=== PATIENT | male | born 1945 | race Caucasian/White ===

== ENCOUNTER 2016-03-18 18:07 | Inpatient (IN) | payer OTHER ==
[~2016-03-18] VITALS: Ht 172.7 cm; Wt 93.2 kg
[~2016-03-18 18:07] MED LIST: ASPI81TA28 PO; CARV25TA2 PO; DABI150C PO; DIPH-437 PO; FRS/40 PO; INSDGIPEN SQ; ISOS30TA35 PO; LISI10TA PO; MAGN400T6 PO; MXT150 PO; POTA-327 PO; PRS5 PO; TRIA0.1O12 TOP
[2016-03-18] MEDS ORDERED: SODIUM CHLORIDE 0.9% 500ML 500 ML IV STA (18:23)
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
[2016-03-18 18:38] LABS: BASO % 0.7 %; BASO ABS # 0.06 K/uL (0-0.2); COMPLETE YES; IG% 0.5 %; LYMPH % 22.1 %; LYMPH ABS # 1.89 K/uL (1.2-3.4); MEAN CELL VOLUME 78.6 fL (80-100); MEAN CORPUSCULAR HEMOGLOBIN 25.3 pg (25-34); MEAN CORPUSCULAR HGB CONC 32.3 g/dl (32-36); MEAN PLATELET VOLUME 11.4 fL (7.4-10.4); MONO % 12.3 %; NEUT % 57.4 %; PLATELET COUNT 253 K/uL (130-400); RED BLOOD COUNT 5.09 M/uL (4.7-6.1); WHITE BLOOD COUNT 8.56 K/uL (4.8-10.8)
[2016-03-18 18:43] LABS: ISTAT CREATININE 1.5 mg/dl (0.6-1.3); ISTAT HEMOGLOBIN 13.3 g/dl (14.0-18.0); ISTAT IONIZED CALCIUM 1.02 mmol/l (1.12-1.32)
[2016-03-18 18:47] LABS: INR 1.2 (0.9-1.1)
--- NOTE | 2016-03-18 19:06 | DIAGNOSTIC IMAGING REPORT ---
CHEST ONE VIEW PORTABLE CLINICAL HISTORY: Chest pain. Defibrillator activation. COMPARISON STUDY: Chest radiograph January 01, 2016. FINDINGS: A biventricular left subclavian pacemaker/AICD is unchanged in position. Moderate cardiomegaly is unchanged. There is no evidence of pulmonary edema. No consolidation is identified to suggest pneumonia. Mild left basilar opacity is suggestive of atelectasis. There is no pneumothorax or pleural effusion. IMPRESSION: 1. No acute findings. 2. Stable moderate cardiomegaly. Electronically signed by: Franco De León M.D. 03/18/2016 7:04 PM Dictated Date/Time: 03/18/2016 7:03 PM
[2016-03-18 19:13] LABS: ALT/SGPT 74 U/L (12-78); AST/SGOT 83 U/L (15-37); BLOOD UREA NITROGEN 17 mg/dl (7-18); BUN/CREATININE RATIO 11.1 (10-20); CALCIUM 8.1 mg/dl (8.5-10.1); CARBON DIOXIDE 33 mmol/L (21-32); CHLORIDE 101 mmol/L (98-107); GLUCOSE 109 mg/dl (70-99); MAGNESIUM 2.2 mg/dl (1.8-2.4); POTASSIUM 3.7 mmol/L (3.5-5.1); SODIUM 140 mmol/L (136-145)
[2016-03-18] MEDS ORDERED: FRS/40 PO ×2 (19:15→19:19)
[2016-03-18 19:29] LABS: ALKALINE PHOSPHATASE 105 U/L (45-117); CKMB/CK RATIO 1.4 (0-3.0)
[2016-03-18] MEDS ORDERED: FAMO20TA11 PO (19:40)
[2016-03-18] MEDS ORDERED: AMIO400T3 PO (19:40)
[2016-03-18] MEDS ORDERED: NITROGLYCERIN 0.4 MG SL PER TAB CHARGE SL PRN (20:00)
[2016-03-18] MEDS ORDERED: MAGNESIUM HYDROXIDE SUSP 30 ML UDC PO PRN (20:00)
[2016-03-18] MEDS ORDERED: MoRPHine SULFATE 2 MG/ML CARP IV PRN (20:00)
[2016-03-18] MEDS ORDERED: ONDANSETRON INJ 2 MG/ML 2 ML VIAL IV PRN (20:00)
[2016-03-18] MEDS ORDERED: ACETAMINOPHEN 325 MG TAB PO PRN (20:00)
[2016-03-18] MEDS ORDERED: POLYETHYLENE (MIRALAX) 17 GM PACK PO PRN (20:00)
[2016-03-18] MEDS ORDERED: ALUMINUM/MAGNESIUM/SIMETH (MAALOX MAX) 30 ML UDC PO PRN (20:00)
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
[2016-03-18] MEDS ORDERED: NON-FORMULARY MEDICATION (Mexiletine Hcl 150 MG) PO SCH (21:00)
[2016-03-18 21:30] VITALS: BP 150/91; TEMP 36.6; O2SAT 93; Ht 172.7 cm; Wt 93.2 kg
[2016-03-18 21:33] VITALS: BP 150/91; PULSE 75; TEMP 36.6; O2SAT 93
[2016-03-18] MEDS ORDERED: HEPARIN SOD 5000 UNIT/0.5 ML CARP SQ SCH (22:00)
[2016-03-18] MEDS: INSULIN ASPART 100 UNITS/ML 3 ML PEN SC SCH (22:33)
[2016-03-18] MEDS: INSULIN GLARGINE SOLOSTAR 100 UNITS/ML 3 ML PEN SQ SCH (22:39)
[2016-03-18] MEDS: MAGNESIUM OXIDE 400 MG TAB PO SCH (22:39)
[2016-03-18] MEDS: FUROSEMIDE 40 MG TAB PO SCH (22:40)
[2016-03-18] MEDS: CARVEDILOL 25 MG TAB PO SCH (22:40)
[2016-03-18] MEDS: DABIGATRAN ELEXILATE 75 MG CAP PO SCH (22:41)
[2016-03-18] MEDS: FAMOTIDINE 20 MG TAB PO SCH (22:41)
[2016-03-19] VITALS (7 sets, daily range): BP systolic 91–128; BP diastolic 57–78; PULSE 65–87; TEMP 36.3–36.5; O2SAT 91–95
[2016-03-19] MEDS: INSULIN ASPART 100 UNITS/ML 3 ML PEN SC SCH ×2 (07:00→11:00)
[2016-03-19] MEDS: DABIGATRAN ELEXILATE 75 MG CAP PO SCH (07:54)
[2016-03-19] MEDS: FUROSEMIDE 40 MG TAB PO SCH (07:54)
[2016-03-19] MEDS: CARVEDILOL 25 MG TAB PO SCH (07:55)
[2016-03-19] MEDS: FAMOTIDINE 20 MG TAB PO SCH (07:55)
[2016-03-19] MEDS: MAGNESIUM OXIDE 400 MG TAB PO SCH (07:55)
[2016-03-19] MEDS: INSULIN GLARGINE SOLOSTAR 100 UNITS/ML 3 ML PEN SQ SCH (07:56)
[2016-03-19] MEDS ORDERED: ISOSORBIDE MONONITRATE 30 MG TABCR PO SCH (09:00)
[2016-03-19] MEDS ORDERED: FINASTERIDE 5 MG TAB PO SCH (09:00)
[2016-03-19] MEDS ORDERED: ASPIRIN 81 MG ECTAB PO SCH (09:00)
[2016-03-19] MEDS ORDERED: MEXILETINE HCL 150 MG CAP PO SCH (09:00)
[2016-03-19] MEDS ORDERED: LISINOPRIL 10 MG TAB PO SCH (09:00)
[2016-03-19] MEDS ORDERED: AMIODARONE 200 MG TAB PO SCH (09:00)
[2016-03-19] MEDS ORDERED: POTASSIUM CHLORIDE 10 MEQ TABCR PO SCH (09:00)
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
--- NOTE | 2016-03-19 13:26 | Discharge Instructions ---
Discharge Instructions Admission Reason for Admission: Defibrillator Discharge Discharge Discharge Diagnosis / Problem: Ventricular tachycardia, defibrillator discharge Discharge Goals Goal(s): Improve disease control, Therapeutic intervention Activity Recommendations Activity Limitations: resume your previous activity . Instructions / Follow-Up Instructions / Follow-Up You were admitted after your defibrillator appropriately fired for sustained ventricular tachycardia. You had blood tests that showed you did not have heart attack. You were seen by the Net Programmer Analyst who did not make any changes to your home medications. You are stable for discharge to home. You should keep your routine follow up with Dr. Altman in May. It is recommended that you see you r primary care doctor within 1-2 weeks after a hospitalization. Current Hospital Diet Patient's current hospital diet: AHA Diet (Heart Healthy) Discharge Diet Recommended Diet: AHA Diet (Heart Healthy), Low Sodium Diet (2gm Na) Procedures Procedures Performed: Chest xray Pending Studies Studies pending at discharge: no Medical Emergencies . Who to Call and When: Medical Emergencies: If at any time you feel your situation is an emergency, please call 911 immediately. . Non-Emergent Contact Non-Emergency issues call your: Primary Care Provider, Net Programmer Analyst Call Non-Emergent contact if: temperature is above 101, you have any medication questions . . "Provider Documentation" section prepared by Devi Modi. VTE Core Measure Inpt VTE Proph given/why not?: Other Anticoagulation (Pradaxa)
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
== END 2016-03-19 13:55 | disposition home or self-care (01) | DRG 309 ==
LOC: ENRESERVDT → ENRESERVTM → EDBD 18:07 → C.EDB 18:08 → C.2T 20:04
PROVIDERS: ADMIT Internal Medicine; ATTEND Internal Medicine
DX: I47.2 Ventricular tachycardia (principal); I50.22 Chronic systolic (congestive) heart failure; I48.0 Paroxysmal atrial fibrillation; N18.2 Chronic kidney disease, stage 2 (mild); I25.10 Atherosclerotic heart disease of native coronary artery without angina pectoris; I12.9 Hypertensive chronic kidney disease with stage 1 through stage 4 chronic kidney disease, or unspecified chronic kidney disease; E11.9 Type 2 diabetes mellitus without complications; I25.5 Ischemic cardiomyopathy; N40.0 Benign prostatic hyperplasia without lower urinary tract symptoms; I25.2 Old myocardial infarction; Z79.82 Long term (current) use of aspirin; Z79.899 Other long term (current) drug therapy; Z79.4 Long term (current) use of insulin; Z95.810 Presence of automatic (implantable) cardiac defibrillator

== ENCOUNTER → 2016-05-17 | Outpatient (CLI) | payer OTHER ==
[~2016-05-17] MED LIST changes: +AMIO400T3 PO; +FAMO20TA11 PO
[2016-05-17 12:21] LABS: HEMATOCRIT 40.3 % (42-52); MEAN CELL VOLUME 75.3 fL (80-100); MEAN CORPUSCULAR HEMOGLOBIN 23.9 pg (25-34); MEAN CORPUSCULAR HGB CONC 31.8 g/dl (32-36); MEAN PLATELET VOLUME 11.8 fL (7.4-10.4); PLATELET COUNT 223 K/uL (130-400); RED BLOOD COUNT 5.35 M/uL (4.7-6.1); WHITE BLOOD COUNT 7.13 K/uL (4.8-10.8)
[2016-05-17 12:42] LABS: ALB/GLOB RATIO 1.2 (0.9-2); ALKALINE PHOSPHATASE 100 U/L (45-117); ALT/SGPT 68 U/L (12-78); AST/SGOT 70 U/L (15-37); BLOOD UREA NITROGEN 19 mg/dl (7-18); BUN/CREATININE RATIO 10.7 (10-20); CALCIUM 8.2 mg/dl (8.5-10.1); CARBON DIOXIDE 33 mmol/L (21-32); CHLORIDE 100 mmol/L (98-107); CHOLESTEROL 140 mg/dl (0-200); CHOLESTEROL/HDL RATIO 4.1; GLUCOSE 178 mg/dl (70-99); HDL CHOLESTEROL 34 mg/dl; POTASSIUM 3.9 mmol/L (3.5-5.1); SODIUM 139 mmol/L (136-145)
[2016-05-17 12:46] LABS: ESTIMATED AVERAGE GLUCOSE 160 mg/dl; HA1C FLAG Normal (Normal)
[2016-05-17 12:55] LABS: LDL CHOLESTEROL CALCULATED 71 mg/dl; TRIGLYCERIDES 173 mg/dl (0-150); VERY LOW DENSITY LIPOPROT CALC 35 mg/dl
[2016-05-18 21:36] LABS: DESMETHYLAMIODARONE 1.1 mcg/mL (1.5-2.5)
== END | disposition home or self-care (01) ==
LOC: C.LABBFT 09:43
PROVIDERS: ATTEND Internal Medicine
DX: E78.5 Hyperlipidemia, unspecified (principal); I42.9 Cardiomyopathy, unspecified; I50.42 Chronic combined systolic (congestive) and diastolic (congestive) heart failure; I25.10 Atherosclerotic heart disease of native coronary artery without angina pectoris; E11.21 Type 2 diabetes mellitus with diabetic nephropathy; Z79.899 Other long term (current) drug therapy

== ENCOUNTER → 2016-09-19 | Outpatient (CLI) | payer OTHER ==
[2016-09-19 17:40] LABS: BASO % 0.7 %; BASO ABS # 0.05 K/uL (0-0.2); COMPLETE YES; EOS % 6.7 %; HEMATOCRIT 41.5 % (42-52); IG% 0.4 %; LYMPH % 22.3 %; LYMPH ABS # 1.59 K/uL (1.2-3.4); MEAN CELL VOLUME 80.3 fL (80-100); MEAN CORPUSCULAR HEMOGLOBIN 24.4 pg (25-34); MEAN CORPUSCULAR HGB CONC 30.4 g/dl (32-36); MEAN PLATELET VOLUME 12.3 fL (7.4-10.4); MONO % 11.1 %; NEUT % 58.8 %; PLATELET COUNT 235 K/uL (130-400); RED BLOOD COUNT 5.17 M/uL (4.7-6.1); WHITE BLOOD COUNT 7.12 K/uL (4.8-10.8)
[2016-09-19 17:51] LABS: ALT/SGPT 65 U/L (12-78); AST/SGOT 68 U/L (15-37); BLOOD UREA NITROGEN 16 mg/dl (7-18); BUN/CREATININE RATIO 9.7 (10-20); CALCIUM 8.3 mg/dl (8.5-10.1); CARBON DIOXIDE 32 mmol/L (21-32); CHLORIDE 100 mmol/L (98-107); GLUCOSE 105 mg/dl (70-99); POTASSIUM 3.5 mmol/L (3.5-5.1); SODIUM 139 mmol/L (136-145)
[2016-09-19 18:02] LABS: ALB/GLOB RATIO 1.2 (0.9-2); ALKALINE PHOSPHATASE 90 U/L (45-117); CHOLESTEROL 128 mg/dl (0-200); CHOLESTEROL/HDL RATIO 4.1; HDL CHOLESTEROL 31 mg/dl; LDL CHOLESTEROL CALCULATED 62 mg/dl; TRIGLYCERIDES 175 mg/dl (0-150); VERY LOW DENSITY LIPOPROT CALC 35 mg/dl
[2016-09-19 18:23] LABS: RATIO 11.5 mcg/mg (0-30.0)
[2016-09-20 06:20] LABS: ESTIMATED AVERAGE GLUCOSE 157 mg/dl; HA1C FLAG Normal (Normal)
== END | disposition home or self-care (01) ==
LOC: C.LABBFT 11:46
PROVIDERS: ATTEND Internal Medicine
DX: E11.21 Type 2 diabetes mellitus with diabetic nephropathy (principal); E03.9 Hypothyroidism, unspecified

== ENCOUNTER → 2016-12-01 | Outpatient (CLI) | payer OTHER ==
--- NOTE | 2016-12-13 12:42 | CODING QUERY MEDICAL NECESSITY ---
CQSUPPORTING DIAGNOSIS NEEDED A supporting diagnosis is required for the test/procedure performed on this patient in order for us to be reimbursed by the patient's insurance. Please provide a supporting diagnosis for the following test/procedure listed below next to the test name along with your signature. *If there is no additional diagnosis for this patient that would support the following test/procedure please document that below next to the test/procedure. Test(s)/Procedure(s) that require a supporting diagnosis: DOS 12/01/16 PROSTATE SPECIFIC TEST Provider Signature: Date: Thank you Angelique Gray [employer] Information Management Once completed, please kindly fax back to [phone] For questions please call [phone]
== END | disposition home or self-care (01) ==
LOC: C.LABBFT 13:22
PROVIDERS: ATTEND Internal Medicine
DX: R41.0 Disorientation, unspecified (principal); N35.9 Urethral stricture, unspecified; R19.7 Diarrhea, unspecified; N40.1 Benign prostatic hyperplasia with lower urinary tract symptoms

== ENCOUNTER → 2016-12-20 | Outpatient (CLI) | payer OTHER | END | disposition home or self-care (01) | LOC: C.LABBFT 11:08 | PROVIDERS: ATTEND Internal Medicine | DX: E03.9 Hypothyroidism, unspecified (principal) ==

== ENCOUNTER 2016-12-28 06:30 | Inpatient (IN) | payer OTHER ==
[2016-12-28] VITALS (10 sets, daily range): BP systolic 101–137; BP diastolic 62–86; PULSE 59–70; TEMP 36.3–37; O2SAT 93–96; Ht 172.7 cm; Wt 95.0 kg
[~2016-12-28] VITALS: Ht 172.7 cm; Wt 95.0 kg
[2016-12-28] MEDS ORDERED: FUROSEMIDE 40 MG/4 ML VIAL IV STA (06:48)
--- NOTE | 2016-12-28 06:49 | EMERGENCY ROOM VISIT NOTE ---
History Report prepared by Nate: Lavonne Meyer Under the Supervision of: Dr. Gabriel Hopson M.D. First contact with patient: 06:40 Chief Complaint: SHORTNESS OF BREATH Stated Complaint: FILLING UP WITH FLUID History of Present Illness The patient is a 71 year old male who presents to the Emergency Room with complaints of persistent shortness of breath that began this morning. The patient states that he has a history of congestive heart failure, stating that he feels he is developing fluid build up again. He states that he is on Lasix in the morning and afternoon, but states that he has not taken his medication this morning. The patient states that he has felt himself wheezing and has noticed weight gain. The patient's states that the patient's abdomen has been increasingly distended. He denies being on oxygen at home. The patient denies using inhalers at home. Source of History: patient Onset: this morning Position: other (global) Quality: other (shortness of breath) Timing: other (persistent) Note: Associated Symptoms: abdominal distension, weight gain, wheezes Review of Systems See HPI for pertinent positives & negatives. A total of 10 systems reviewed and were otherwise negative. Past Medical & Surgical Medical Problems: (1) Atrial fibrillation (2) Benign hypertension (3) CHF (congestive heart failure) (4) Chronic kidney disease, stage II (mild) (5) Diabetes mellitus (6) Ischemic cardiomyopathy (7) Left Femoral Neck Fracture (8) Myocardial infarction (9) Pneumonia (10) Shortness of breath (11) Urinary retention Family History FH: HTN (hypertension) FH: cancer FH: thyroid condition FHx: diabetes mellitus FHx: heart disease Social History Smoking Status: Never Smoker Alcohol Use: none Drug Use: none Marital Status: Housing Status: lives with family Occupation Status: retired Current/Historical Medications Scheduled Acetaminophen/Diphenhydramine (Tylenol Pm), 1 TAB PO HS Amiodarone Hcl (Cordarone), 200 MG PO DAILY Aspirin (Aspirin Ec), 81 MG PO DAILY Carvedilol (Coreg), 25 MG PO BID Dabigatran Etexilate Mesylate (Pradaxa), 150 MG PO BID Famotidine (Pepcid), 20 MG PO BID Finasteride (Proscar), 5 MG PO DAILY Furosemide (Lasix), 40 MG PO BID UD Insulin Glargine (Lantus Solostar), 25 UNITS SQ BID Isosorbide Mononitrate Ext Rel (Imdur Ext Rel), 30 MG PO QAM Levothyroxine Sodium (Synthroid), 88 MCG PO DAILY Lisinopril (Prinivil), 10 MG PO DAILY Magnesium Oxide (Mag-Ox), 400 MG PO BID Potassium Chloride (Micro-K Ext Rel), 10 MEQ PO DAILY Triamcinolone Acet (Triamcinolone Acetonide), 1 APPLN TOP BID Scheduled PRN Furosemide (Lasix), 40 MG PO DAILY PRN for WT GAIN, OR EDEMA Allergies Coded Allergies: Midazolam (Verified Allergy, Intermediate, "Made me go wild", 12/28/16) Adhesives (Verified Allergy, Unknown, RASH, 12/28/16) Bacitracin (Verified Allergy, Unknown, RASH, 12/28/16) Neomycin (Verified Allergy, Unknown, RASH, 12/28/16) Polymyxin B (Verified Allergy, Unknown, RASH, 08/07/15) Rosuvastatin (Verified Allergy, Unknown, RASH, 12/28/16) Risperidone (Verified Adverse Reaction, Severe, confusion, disorientation , 12/28/16) Metformin (Verified Adverse Reaction, Mild, DIARRHEA, 12/28/16) Oxycodone (Verified Adverse Reaction, Unknown, PT STATES THAT IT MAKES HIM MEAN OR ANGRY, 12/28/16) Quetiapine (Verified Adverse Reaction, Unknown, GETS COMBATIVE, 12/28/16) Physical Exam Vital Signs Date Time Temp Pulse Resp B/P (MAP) Pulse Ox O2 Delivery O2 Flow Rate FiO2 12/28/16 08:00 84 18 104/72 96 Room Air 12/28/16 07:00 96 Room Air 12/28/16 06:58 61 20 133/81 95 Room Air 12/28/16 06:50 96 Room Air 12/28/16 06:47 72 12/28/16 06:37 36.4 92 20 137/71 97 Room Air Physical Exam GENERAL: Patient is a healthy-appearing well-nourished male HEAD: Normocephalic atraumatic EYES: Ocular movements intact pupils equal and react to light OROPHARYNX mucous membranes are moist no exudates present no erythema or edema present NECK: Supple no nuchal rigidity CHEST: Good equal expansion LUNGS: Rales noted at both bases CARDIAC: Normal S1 and S2 ABDOMEN: Soft nontender no guarding BACK: No CVA tenderness EXTREMITIES: No pain upon palpation normal muscle strength in all groups no clubbing cyanosis or edema NEURO: Patient is following commands and answering questions appropriately. Alert and oriented x3 Cranial Nerves 2-12 grossly intact Medical Decision & Procedures ER Provider Diagnostic Interpretation: X-ray results as stated below per interpretation by me and the radiologist: CHEST ONE VIEW PORTABLE CLINICAL HISTORY: Shortness of breath COMPARISON STUDY: 03/18/2016 FINDINGS: The heart is the upper limits of normal in size. There is a left subclavian pacer/defibrillator present. There is no failure. There is no focal pulmonary consolidation. There are no pleural effusions. There are linear atelectatic changes at the left lung base.[ IMPRESSION: No active disease in the chest. Electronically signed by: Earnest Gan M.D. 12/28/2016 7:28 AM Dictated Date/Time: 12/28/2016 7:27 AM Laboratory Results 12/28/16 06:50 Red Blood Count 4.00, Mean Corpuscular Volume 84.0, Mean Corpuscular Hemoglobin 26.8, Mean Corpuscular Hemoglobin Concent 31.8, Mean Platelet Volume 11.8, Neutrophils (%) (Auto) 61.4, Lymphocytes (%) (Auto) 20.0, Monocytes (%) (Auto) 10.2, Eosinophils (%) (Auto) 7.2, Basophils (%) (Auto) 0.8, Neutrophils # (Auto ) 4.52, Lymphocytes # (Auto) 1.47, Monocytes # (Auto) 0.75, Eosinophils # (Auto ) 0.53, Basophils # (Auto) 0.06 12/28/16 06:50 Test 12/28/16 06:50 12/28/16 07:08 White Blood Count 7.36 K/uL (4.8-10.8) Red Blood Count 4.00 M/uL (4.7-6.1) Hemoglobin 10.7 g/dL (14.0-18.0) Hematocrit 33.6 % (42-52) Mean Corpuscular Volume 84.0 fL (80-100) Mean Corpuscular Hemoglobin 26.8 pg (25-34) Mean Corpuscular Hemoglobin Concent 31.8 g/dl (32-36) Platelet Count 200 K/uL (130-400) Mean Platelet Volume 11.8 fL (7.4-10.4) Neutrophils (%) (Auto) 61.4 % Lymphocytes (%) (Auto) 20.0 % Monocytes (%) (Auto) 10.2 % Eosinophils (%) (Auto) 7.2 % Basophils (%) (Auto) 0.8 % Neutrophils # (Auto) 4.52 K/uL (1.4-6.5) Lymphocytes # (Auto) 1.47 K/uL (1.2-3.4) Monocytes # (Auto) 0.75 K/uL (0.11-0.59) Eosinophils # (Auto) 0.53 K/uL (0-0.5) Basophils # (Auto) 0.06 K/uL (0-0.2) RDW Standard Deviation 43.6 fL (36.4-46.3) RDW Coefficient of Variation 18.3 % (11.5-14.5) Immature Granulocyte % (Auto) 0.4 % Immature Granulocyte # (Auto) 0.03 K/uL (0.00-0.02) Prothrombin Time 12.2 SECONDS (9.0-12.0) Prothromb Time International Ratio 1.1 (0.9-1.1) Anion Gap 4.0 mmol/L (3-11) Est Creatinine Clear Calc Drug Dose 51.2 ml/min Estimated GFR () 53.0 Estimated GFR (Non- 45.7 BUN/Creatinine Ratio 10.1 (10-20) Calcium Level 8.1 mg/dl (8.5-10.1) Total Bilirubin 0.5 mg/dl (0.2-1) Aspartate Amino Transf (AST/SGOT) 57 U/L (15-37) Alanine Aminotransferase (ALT/SGPT) 51 U/L (12-78) Alkaline Phosphatase 81 U/L (45-117) Total Creatine Kinase 270 U/L (39-308) Creatine Kinase MB 4.3 ng/ml (0.5-3.6) Creatine Kinase MB Ratio 1.6 (0-3.0) Troponin I 0.680 ng/ml (0-0.045) Total Protein 6.6 gm/dl (6.4-8.2) Albumin 3.4 gm/dl (3.4-5.0) Globulin 3.2 gm/dl (2.5-4.0) Albumin/Globulin Ratio 1.1 (0.9-2) Urine Color YELLOW Urine Appearance CLEAR (CLEAR) Urine pH 7.5 (4.5-7.5) Urine Specific [place] 1.010 (1.000-1.030) Urine Protein NEG (NEG) Urine Glucose (UA) NEG (NEG) Urine Ketones NEG (NEG) Urine Occult Blood NEG (NEG) Urine Nitrite NEG (NEG) Urine Bilirubin NEG (NEG) Urine Urobilinogen NEG (NEG) Urine Leukocyte Esterase NEG (NEG) Labs reviewed by ED physician. Medications Administered Medications (Trade) Dose Ordered Sig/William Route Start Time Stop Time Status Last Admin Dose Admin Furosemide (Lasix Inj) 40 mg NOW STAT IV 12/28/16 06:48 12/28/16 06:50 DC 12/28/16 06:59 40 MG ECG Indication: SOB/dyspnea Rate (beats per minute): 78 Rhythm: other (atrial paced) Findings: no acute ischemic change, no ectopy ED Course 0643: Past medical records reviewed. The patient was evaluated in room A11B. A complete history and physical examination was performed. 0648: Ordered Lasix Inj 40 mg IV. 0745: I reevaluated the patient and he is resting comfortably. I discussed the exam findings with him and I discussed the treatment plan. He verbalized complete understanding and agreement. He is going to be evaluated for further treatment. 0754: I discussed the patients case with YELENA Carlisle. He is going to evaluate the patient for further treatment. Medical Decision Differential diagnosis: Etiologies such as infections, reactive airway disease, pneumonia, pneumothorax , COPD, CHF, cardiac ischemia, pulmonary embolism, musculoskeletal, gastrointestinal, as well as others were entertained. This is a 71-year-old male who presents emergency department complaining of shortness of breath as well as congestion and weight gain. The patient does have an elevation in his troponin. He was given his Lasix dose this morning. I did discuss my findings with the patient and who agreed to stay. Medication Reconcilliation Current Medication List: was personally reviewed by me Blood Pressure Screening Patient's blood pressure: Elevated blood pressure Blood pressure disposition: Referred to PCP Consults Time Called: 0748 Consulting Physician: YELENA Carlisle Returned Call: [phone] I discussed the patients case with YELENA Carlisle. He is going to evaluate the patient for further treatment. Impression Primary Impression: CHF exacerbation Scribe Attestation The scribe's documentation has been prepared under my direction and personally reviewed by me in its entirety. I confirm that the note above accurately reflects all work, treatment, procedures, and medical decision making performed by me. Departure Information Dispostion Being Evaluated By Hospitalist Referrals Giovany Pollack M.D. (PCP) Problem Qualifiers Primary Impression: CHF exacerbation Congestive heart failure type: unspecified congestive heart failure type Qualified Codes: I50.9 - Heart failure, unspecified
[2016-12-28 07:09] LABS: BASO % 0.8 %; BASO ABS # 0.06 K/uL (0-0.2); COMPLETE YES; EOS % 7.2 %; HEMATOCRIT 33.6 % (42-52); IG% 0.4 %; LYMPH ABS # 1.47 K/uL (1.2-3.4); MEAN CORPUSCULAR HEMOGLOBIN 26.8 pg (25-34); MEAN CORPUSCULAR HGB CONC 31.8 g/dl (32-36); MEAN PLATELET VOLUME 11.8 fL (7.4-10.4); MONO % 10.2 %; NEUT % 61.4 %; PLATELET COUNT 200 K/uL (130-400); WHITE BLOOD COUNT 7.36 K/uL (4.8-10.8)
[2016-12-28] MEDS ORDERED: FINA5TAB PO (07:11)
[2016-12-28] MEDS ORDERED: AMIO200T4 PO (07:11)
[2016-12-28] MEDS ORDERED: POTA10CA28 PO (07:11)
[2016-12-28] MEDS ORDERED: LEVO88TA PO (07:11)
[2016-12-28] MEDS ORDERED: TRMO115 TOP (07:11)
[2016-12-28 07:16] LABS: INR 1.1 (0.9-1.1); PROTHROMBIN TIME (PATIENT) 12.2 SECONDS (9.0-12.0)
[2016-12-28 07:20] LABS: URINE APPEARANCE CLEAR (CLEAR); URINE BILIRUBIN NEG (NEG); URINE COLOR YELLOW; URINE NITRITE NEG (NEG); URINE PH 7.5 (4.5-7.5); UROBILINOGEN NEG (NEG)
[2016-12-28 07:23] LABS: MANUAL MICROSCOPIC REQUIRED? NO; REVIEW REQ? NO
[2016-12-28 07:26] LABS: BUN/CREATININE RATIO 10.1 (10-20); CALCIUM 8.1 mg/dl (8.5-10.1); CREATININE 1.53 mg/dl (0.60-1.40); POTASSIUM 3.9 mmol/L (3.5-5.1)
--- NOTE | 2016-12-28 07:29 | DIAGNOSTIC IMAGING REPORT ---
CHEST ONE VIEW PORTABLE CLINICAL HISTORY: Shortness of breath COMPARISON STUDY: 03/18/2016 FINDINGS: The heart is the upper limits of normal in size. There is a left subclavian pacer/defibrillator present. There is no failure. There is no focal pulmonary consolidation. There are no pleural effusions. There are linear atelectatic changes at the left lung base.[ IMPRESSION: No active disease in the chest. Electronically signed by: Earnest Gan M.D. 12/28/2016 7:28 AM Dictated Date/Time: 12/28/2016 7:27 AM
[2016-12-28 07:43] LABS: ALB/GLOB RATIO 1.1 (0.9-2); CKMB/CK RATIO 1.6 (0-3.0)
[2016-12-28] MEDS ORDERED: ALUMINUM/MAGNESIUM/SIMETH (MAALOX MAX) 30 ML UDC PO PRN (08:00)
[2016-12-28] MEDS ORDERED: POLYETHYLENE (MIRALAX) 17 GM PACK PO PRN (08:00)
[2016-12-28] MEDS ORDERED: MAGNESIUM HYDROXIDE SUSP 30 ML UDC PO PRN (08:00)
[2016-12-28] MEDS ORDERED: NITROGLYCERIN 0.4 MG SL PER TAB CHARGE SL PRN (08:00)
[2016-12-28] MEDS ORDERED: ONDANSETRON INJ 2 MG/ML 2 ML VIAL IV PRN (08:00)
[2016-12-28] MEDS ORDERED: ACETAMINOPHEN 325 MG TAB PO PRN (08:00)
[2016-12-28] MEDS ORDERED: MoRPHine SULFATE 2 MG/ML CARP IV PRN (08:00)
[2016-12-28] MEDS ORDERED: IV FLUIDS COMPLETED PRN (08:30)
[2016-12-28] MEDS: ASPIRIN 81 MG ECTAB PO SCH (10:44)
[2016-12-28] MEDS ORDERED: GLUCOSE 10 TABS/TUBE PO PRN (12:45)
[2016-12-28] MEDS ORDERED: DEXTROSE 50% 50 ML SYR IV PRN (12:45)
[2016-12-28] MEDS ORDERED: GLUCOSE 40% GEL 15 GM TUBE PO PRN (12:45)
[2016-12-28] MEDS ORDERED: GLUCAGON FOR INJ 1 MG VIAL SQ PRN (12:45)
[2016-12-28 13:12] LABS: ESTIMATED AVERAGE GLUCOSE 151 mg/dl; HA1C FLAG Normal (Normal)
--- NOTE | 2016-12-28 13:47 | Medical Student: [facility] ---
Med Student History & Physical Date & Time of Service: Dec 28, 2016 at 13:23 Chief Complaint: Shortness Of Breath Primary Care Physician: Giovany Pollack M.D. History of Present Illness Source: patient, spouse Nghia is a 71-year-old male with a history of CHF, a-fib, HTN, prior MT with subsequent ischemic cardiomyopathy, and DMII, presents to the ED with shortness of breath that began when he woke up around 0600 this morning. He has also gained five pounds in the last week, including three overnight, according to the log his keeps for him. He is wheezing and coughing and appears uncomfortable. states that he takes Lasix 40 mg BID and has been taking his medication as instructed, including "extra" (PRN as given by PCP) the last few days because of his increasing weight. When asked about his eating habits, patient admits that he likes to snack on potato chips, eats ham sandwiches for lunch, and had hot dogs for lunch last week, which seems to be slightly increased sodium intake for him. Denies smoking but admits to use of smokeless tobacco. Past Medical/Surgical History Medical Problems: (1) CHF (congestive heart failure) Status: Acute (2) CHF exacerbation Status: Acute (3) Closed impacted fracture of left hip Status: Acute (4) Non-STEMI (non-ST elevated myocardial infarction) Status: Acute (5) Renal insufficiency Status: Acute Family History HTN, cancer, thyroid, DMII, heart disease Social History Smoking Status: Never Smoker Smokeless Tobacco Use: Yes Drug Use: none Marital Status: Housing status: lives with significant other Occupational Status: retired Immunizations History of Influenza Vaccine: Yes Influenza Vaccine Date: Dec 10, 2012 History of Tetanus Vaccine?: Unknown History of Pneumococcal: Yes Pneumococcal Date: Apr 11, 2012 History of Hepatitis B Vaccine: Unknown Allergies Coded Allergies: Midazolam (Verified Allergy, Intermediate, "Made me go wild", 12/28/16) Adhesives (Verified Allergy, Unknown, RASH, 12/28/16) Bacitracin (Verified Allergy, Unknown, RASH, 12/28/16) Neomycin (Verified Allergy, Unknown, RASH, 12/28/16) Polymyxin B (Verified Allergy, Unknown, RASH, 08/07/15) Rosuvastatin (Verified Allergy, Unknown, RASH, 12/28/16) Risperidone (Verified Adverse Reaction, Severe, confusion, disorientation , 12/28/16) Metformin (Verified Adverse Reaction, Mild, DIARRHEA, 12/28/16) Oxycodone (Verified Adverse Reaction, Unknown, PT STATES THAT IT MAKES HIM MEAN OR ANGRY, 12/28/16) Quetiapine (Verified Adverse Reaction, Unknown, GETS COMBATIVE, 12/28/16) Medications Acetaminophen/Diphenhydramine (Tylenol Pm), 1 TAB PO HS Amiodarone Hcl (Cordarone), 200 MG PO DAILY Aspirin (Aspirin Ec), 81 MG PO DAILY Carvedilol (Coreg), 25 MG PO BID Dabigatran Etexilate Mesylate (Pradaxa), 150 MG PO BID Famotidine (Pepcid), 20 MG PO BID Finasteride (Proscar), 5 MG PO DAILY Furosemide (Lasix), 40 MG PO BID UD Furosemide (Lasix), 40 MG PO DAILY PRN for WT GAIN, OR EDEMA Insulin Glargine (Lantus Solostar), 25 UNITS SQ BID Isosorbide Mononitrate Ext Rel (Imdur Ext Rel), 30 MG PO QAM Levothyroxine Sodium (Synthroid), 88 MCG PO DAILY Lisinopril (Prinivil), 10 MG PO DAILY Magnesium Oxide (Mag-Ox), 400 MG PO BID Potassium Chloride (Micro-K Ext Rel), 10 MEQ PO DAILY Triamcinolone Acet (Triamcinolone Acetonide), 1 APPLN TOP BID Review of Systems Constitutional: + problem reported (weight gain, 5 lbs over last 7 days), No fever, No chills Respiratory: + cough, + wheezing, + shortness of breath, + dyspnea at rest, No sputum Cardiovascular: + orthopnea, + PND, + edema (pedal and abdominal), No chest pain Abdomen: No pain, No nausea, No vomiting Musculoskeletal: No calf pain Neurologic: No numbness/tingling Hematologic / Lymphatic: No abnormal bleeding/bruising Integumentary: + problem reported Physical Exam Vital Signs (24 Hours) Date Time Temp Pulse Resp B/P (MAP) Pulse Ox O2 Delivery O2 Flow Rate FiO2 12/28/16 11:19 37.0 60 20 112/68 (83) 93 12/28/16 09:15 36.4 59 18 133/81 (98) 95 Room Air 10/18/17 09:06 84 20 131/79 95 Room Air 12/28/16 08:34 96 Room Air 12/28/16 08:15 95 Room Air 12/28/16 08:00 84 18 104/72 96 Room Air 12/28/16 07:00 96 Room Air 12/28/16 06:58 61 20 133/81 95 Room Air 12/28/16 06:50 96 Room Air 12/28/16 06:47 72 12/28/16 06:37 36.4 92 20 137/71 97 Room Air General Appearance: + mild distress Head: normocephalic, atraumatic Eyes: normal inspection Neck: supple Respiratory/Chest: + respiratory distress, + decreased breath sounds, + rales Cardiovascular: + irregularly irregular Abdomen/GI: normal bowel sounds, + distended Extremities/Musculoskelatal: + pedal edema (1+) Neurologic/Psych: digital account director II-XII nml as tested Diagnostics Laboratory Results Results Past 24 Hours Test 12/28/16 06:50 12/28/16 07:08 12/28/16 09:24 12/28/16 12:00 Range/Units White Blood Count 7.36 4.8-10.8 K/uL Red Blood Count 4.00 4.7-6.1 M/uL Hemoglobin 10.7 14.0-18.0 g/dL Hematocrit 33.6 42-52 % Mean Corpuscular Volume 84.0 80-100 fL Mean Corpuscular Hemoglobin 26.8 25-34 pg Mean Corpuscular Hemoglobin Concent 31.8 32-36 g/dl Platelet Count 200 130-400 K/uL Mean Platelet Volume 11.8 7.4-10.4 fL Neutrophils (%) (Auto) 61.4 % Lymphocytes (%) (Auto) 20.0 % Monocytes (%) (Auto) 10.2 % Eosinophils (%) (Auto) 7.2 % Basophils (%) (Auto) 0.8 % Neutrophils # (Auto) 4.52 1.4-6.5 K/uL Lymphocytes # (Auto) 1.47 1.2-3.4 K/uL Monocytes # (Auto) 0.75 0.11-0.59 K/uL Eosinophils # (Auto) 0.53 0-0.5 K/uL Basophils # (Auto) 0.06 0-0.2 K/uL RDW Standard Deviation 43.6 36.4-46.3 fL RDW Coefficient of Variation 18.3 11.5-14.5 % Immature Granulocyte % (Auto) 0.4 % Immature Granulocyte # (Auto) 0.03 0.00-0.02 K/uL Prothrombin Time 12.2 9.0-12.0 SECONDS Prothromb Time International Ratio 1.1 0.9-1.1 Sodium Level 139 136-145 mmol/L Potassium Level 3.9 3.5-5.1 mmol/L Chloride Level 103 98-107 mmol/L Carbon Dioxide Level 32 21-32 mmol/L Anion Gap 4.0 3-11 mmol/L Blood Urea Nitrogen 15 7-18 mg/dl Creatinine 1.53 0.60-1.40 mg/dl Est Creatinine Clear Calc Drug Dose 51.2 ml/min Estimated GFR () 53.0 Estimated GFR (Non- 45.7 BUN/Creatinine Ratio 10.1 10-20 Random Glucose 105 70-99 mg/dl Estimated Average Glucose 151 mg/dl Hemoglobin A1c 6.9 4.5-5.6 % Calcium Level 8.1 8.5-10.1 mg/dl Total Bilirubin 0.5 0.2-1 mg/dl Aspartate Amino Transf (AST/SGOT) 57 15-37 U/L Alanine Aminotransferase (ALT/SGPT) 51 12-78 U/L Alkaline Phosphatase 81 45-117 U/L Total Creatine Kinase 270 39-308 U/L Creatine Kinase MB 4.3 0.5-3.6 ng/ml Creatine Kinase MB Ratio 1.6 0-3.0 Troponin I 0.680 0-0.045 ng/ml Total Protein 6.6 6.4-8.2 gm/dl Albumin 3.4 3.4-5.0 gm/dl Globulin 3.2 2.5-4.0 gm/dl Albumin/Globulin Ratio 1.1 0.9-2 Urine Color YELLOW Urine Appearance CLEAR CLEAR Urine pH 7.5 4.5-7.5 Urine Specific [place] 1.010 1.000-1.030 Urine Protein NEG NEG Urine Glucose (UA) NEG NEG Urine Ketones NEG NEG Urine Occult Blood NEG NEG Urine Nitrite NEG NEG Urine Bilirubin NEG NEG Urine Urobilinogen NEG NEG Urine Leukocyte Esterase NEG NEG Bedside Glucose 112 161 70-99 mg/dl Impression Assessment and Plan This is a 71-year-old male who presents with shortness of breath and weight gain /fluid retention. He has a history of CHF and this is very likely an exacerbation. Other possibilities include COPD, pneumonia, PE, pulmonary HTN, asthma, silent MT, med noncompliance. Primary diagnosis: CHF exacerbation with elevated troponin -IV Lasix 40 mg BID -Echocardiogram -Serial troponin levels -Follow up CXR if worse symptoms -Low sodium diet A fib/ischemic cardiomyopathy/HTN -Continue carvedilol, aspirin, amiodarone, lisinopril, dabigatran DMII -Continue glargine Hypothyroid - continue Levothyroxine CKD stage II -Monitor BUN/Cr Advanced Directives Existing Living Will: No Existing Power of Voltage Inspector: No
[2016-12-28] MEDS ORDERED: PERFLUTREN LIPID MICROSPHERE (DEFINITY) IV ONE (15:07)
--- NOTE | 2016-12-28 15:20 | History and Physical ---
History & Physical Date of Service Dec 28, 2016. History & Physical obs #[id number]
--- NOTE | 2016-12-28 15:51 | HISTORY & PHYSICAL EXAMINATION ---
DATE OF ADMISSION: 12/28/2016 CHIEF COMPLAINT: Shortness of breath. HISTORY OF PRESENT ILLNESS: The patient is a very pleasant 71-year-old male. History is obtained from himself as well as his . He notes basically came to the ER because he woke around 6 o'clock this morning with shortness of breath that felt reminiscent of his prior CHF exacerbations. On directed questioning he notes that he has gained about 5 pounds in the last week including especially 3 or so over the last day. His has noticed that his belly is getting a little bit bigger and more swollen, as seems to happen when he has CHF exacerbations. He denies fevers, chills, or sweats. He does not have a productive cough, it seems that he probably has a degree of orthopnea given that he was sleeping whenever he woke up short of breath, although it is not entirely clear. Otherwise he does note in his typical diet he eats potato chips, ham, most recently shortly before the weight gain started he had hot dogs for lunch. REVIEW OF SYSTEMS: Otherwise negative, except for as above. PAST MEDICAL HISTORY: Includes dilated cardiomyopathy due to the ischemic cardiomyopathy from coronary artery disease, coronary artery disease with prior silent SC, CKD approximately stage II, cardiac conduction disease status post ICD pacer, presumably BPH, type 2 diabetes on insulin, Afib. MEDICATIONS: Amiodarone, aspirin, Coreg, Pradaxa, Pepcid, Proscar, Lasix, Lantus, Imdur, Synthroid, lisinopril, mag ox, potassium chloride. PAST SURGICAL HISTORY: Most notably is for his ICD pacer implantation. He has also had other prior surgeries. FAMILY HISTORY: Hypertension, cancer, thyroid disease, type 2 diabetes, heart disease. SOCIAL HISTORY: He used chewing tobacco up to about 2014. He is actually considering resuming. He is never a smoker. He is and lives with his . His apparently does most of his medication management for him. ALLERGIES: ALLERGY LIST IS EXTENSIVE AND INCLUDES MIDAZOLAM, ADHESIVES, BACITRACIN, NEOMYCIN, POLYMYXIN, ROSUVASTATIN, RISPERIDONE, METFORMIN, OXYCODONE, AND SEROQUEL. PHYSICAL EXAMINATION: VITAL SIGNS: Temp 36.4, pulse 59, respiratory rate 18, blood pressure 133/81 and 95% on room air. GENERAL: He is awake, alert, oriented x3, pleasant, in no acute distress. HEAD, EYES, EARS, NOSE, AND THROAT: Normocephalic, atraumatic. Mucous membranes are moist. CARDIOVASCULAR: Regular without rubs, murmurs, or gallops, somewhat distant. LUNGS: Show diminished air entry, particularly bibasilar with bibasilar rales. The remainder of his lungs actually appear clear without rales, rhonchi, or wheezes. Good effort. No accessory muscle use. ABDOMEN: Soft, mildly distended, no clear abdominal wall edema but appears to be a bit protuberant. No guarding, rebound or rigidity. EXTREMITIES: Show no cyanosis or clubbing. He has bilateral lower extremity about 1+ edema. He does not really know what his chronic degree of edema is to compare this to. NEUROLOGIC: Shows cranial nerves II-XII to be grossly intact. Gross motor and sensory are intact. MUSCULOSKELETAL EXAMINATION: Yields no gross lesions. SKIN: Shows no rashes. No pallor or icterus. He does have chronic venous stasis changes of his legs. MENTAL STATE: Shows fair recent and remote recall. Normal mood and affect. Good judgment and insight. LABORATORY DATA AND DIAGNOSTICS: CBC shows a white count of 7.36, hemoglobin 10.7, platelets 200. Complete metabolic panel with sodium 139, potassium 3.9, chloride 103, CO2 32, BUN 15, creatinine 1.5, calcium 8.1, glucose 105. His A1c is 6.9. Total bilirubin 0.5, AST 57, ALT 51, alkaline phosphatase 81, CK total 270 with an MB of 4.3, ratio of 1.6, troponin 0.68. Total protein 6.6, albumin 3.4, PT of 12.2 with an INR of 1.1. Urinalysis yellow, clear, specific gravity 1.010, otherwise negative. Chest x-ray shows his pacer defibrillator. Radiology notes no active disease. To my review, it does appear there is a degree of pulmonary vascular congestion and cardiomegaly but no overt pulmonary edema. His EKG is Afib with atrial pacing, wide QRS, but no overt ischemic changes. ASSESSMENT AND PLAN: 1. Acute on chronic systolic congestive heart failure. The differential for this appears to be most likely sodium intake leading to fluid retention versus far less likely worsening of his cardiomyopathy. It is also possible that he had a degree of fluid retention and given that his belly appears to be a bit swollen, it is possible that he is not entirely absorbing his Lasix whenever he is in an exacerbation. At this point in time we will diurese, 40 of Lasix IV b.i.d. and then transition him back to home dosing. If it becomes more clear that he is having gut edema, possibly change his Lasix over to Bumex and I tried to start to educate him on sodium intake, and interplay with CHF exacerbations. He seems to loosely understand. Will ask the dietitian to continue to talk with him on cementing this. 2. Elevated troponin. This appears most likely consistent with demand ischemia. He has had a silent SC in the past. Will trend his cardiac enzymes, check an echocardiogram to rule this out as pathology; however, his history and his exam seems most consistent with demand ischemia from CHF, particularly given his known ischemic cardiomyopathy. 3. Type 2 diabetes on insulin. His A1c show a good degree of control. We will continue his home meds and follow. 4. Stage II chronic kidney disease. It appears he is actually around his baseline, will need to continue to follow this with diuresis. 5. Hypocalcemia. Given his CKD and prior vitamin D deficiency, we will check a repeat vitamin D. 6. Anemia. He shows no signs or symptoms of active bleeding. He is a little bit lower than his typical baseline; however, as long as his hemoglobin does not drop and as long as he does not show any active bleeding, this would be a measure for outpatient followup. 7. Mildly elevated AST, possibly due to hepatic congestion from CHF. Outpatient followup is only minimally elevated. 8. Coronary artery disease. Continue his home medications, otherwise as above. 9. Deep venous thrombosis prophylaxis: He is anticoagulated for his Afib. 10. Afib/cardiac conduction disease. Continue his home meds, continue his anticoagulation. 11. Hypothyroidism. Continue his Synthroid.
[2016-12-28] MEDS: FUROSEMIDE INJ 40 MG in SYRINGE 0 ML IV SCH (16:45)
--- NOTE | 2016-12-28 16:51 | ECHOCARDIOGRAM REPORT ---
*NOTICE TO RECEIVING DEMOCRAT AGENCY This information is strictly Confidential and protected under [place] law. [place] law prohibits you from making any further disclosure of this information unless further disclosure is expressly permitted by the written consent of the person to whom it pertains or is authorized by law. A general authorization for the release of medical or other information is not sufficient for this purpose. Hospital accepts no responsibility if the information is made available to any other person, INCLUDING THE PATIENT. Interpretation Summary * Name: JAJA TILLEY Study Date: 12/28/2016 02:14 PM BP: 112/68 mmHg * Patient Location: .[facility]\S\N280\S\2 HR: 60 * : 1945 (M/d/yyyy) Gender: Male Height: 68 in * Age: 71 yrs Ethnicity: [place] Weight: 207 lb * Ordering Physician: Cameron Holder * Referring Physician: Self, Referred * Performed By: Deana Trujillo RDCS * * Reason For Study: CHF * BSA: 2.1 m2 * Mild left ventricular dilatation. * Mild concentric left ventricular hypertrophy. * Moderate left ventricular systolic dysfunction. * Moderate left atrial dilatation. * Aortic valve sclerosis with no significant stenosis. * Mild pulmonic regurgitation. * Mild mitral regurgitation. * Mild tricuspid regurgitation. * Mildly elevated estimated right ventricular systolic pressure. * Normal estimated central venous pressure. * Compared to an echocardiogram of April 11, 2013 the left ventricular ejection fraction has decreased. * -- Conclusions -- * Aortic valve sclerosis moderate, without significant aortic valvular stenosis. Procedure Details * A complete two-dimensional transthoracic echocardiogram was performed (2D, M-mode, Doppler and color flow Doppler). * A contrast injection of Definity was performed to improve assessment of LV function. * Contrast was injected into an intravenous site in the right arm. * One vial of Definity ultrasound contrast was diluted in normal saline to a total volume of 10 ml. A total of '3' ml of solution was administered during imaging. * Lot # [id number] of Definity utilized for procedure. * Expiration date DEC 28. * The attending nurse who injected the contrast agent was Agnes Fowler RN. Left Ventricle * The left ventricle is mildly dilated. * There is mild concentric left ventricular hypertrophy. * Ejection Fraction = 35-40%. * Left ventricular systolic function is moderately reduced. * There is moderate global hypokinesis of the left ventricle. Right Ventricle * The right ventricle is normal in size and function. Atria * The left atrium is moderately dilated. * Right atrial size is normal. * No ASD detected; PFO is not assessed. Mitral Valve * The mitral valve is normal. * There is no mitral valve stenosis. * There is mild mitral regurgitation. Tricuspid Valve * The tricuspid valve is normal. * There is no tricuspid stenosis. * There is mild tricuspid regurgitation. * Right ventricular systolic pressure is elevated at 30-40mmHg. Aortic Valve * The aortic valve is trileaflet. * Aortic valve sclerosis moderate, without significant aortic valvular stenosis. * Aortic valve area was calculated at 1.8 cm\S\2 using the continuity equation. * Mild valvular aortic stenosis. * No aortic regurgitation is present. Pulmonic Valve * The pulmonic valve is not well visualized. * The pulmonary valve is inadequately visualized, but the Doppler data is adequate for interpretation. * There is no pulmonic valvular stenosis. * Mild pulmonic valvular regurgitation. Great Vessels * The aortic root is normal size. Pericardium/Pleural * There is no pericardial effusion. Great Vessels * Normal inferior vena cava diameter and respiratory variation suggests normal central venous pressure. MMode 2D Measurements and Calculations IVSd 1.4 cm LVIDd 5.9 cm LVIDs 4.9 cm LVPWd 1.4 cm IVS/LVPW 10 FS 16.7 % EDV(Teich) 171.1 ml ESV(Teich) 112.2 ml EF(Teich) 34.4 % EDV(cubed) 202.1 ml ESV(cubed) 116.8 ml EF(cubed) 42.2 % LV mass(C)d 376.2 grams LV mass(C)dI 181.4 grams/m\S\2 SV(Teich) 58.9 ml SI(Teich) 28.4 ml/m\S\2 SV(cubed) 85.3 ml SI(cubed) 41.1 ml/m\S\2 Ao root diam 3.5 cm Ao root area 9.9 cm\S\2 ACS 1.6 cm LA dimension 4.4 cm asc Aorta Diam 3.0 cm LA/Ao 1.2 LVOT diam 2.0 cm LVOT area 3.1 cm\S\2 LVAd ap4 36.0 cm\S\2 LVLd ap4 8.3 cm EDV(MOD-sp4) 131.6 ml EDV(sp4-el) 131.9 ml LVAs ap4 27.7 cm\S\2 LVLs ap4 7.9 cm ESV(MOD-sp4) 82.3 ml ESV(sp4-el) 82.3 ml EF(MOD-sp4) 37.4 % EF(sp4-el) 37.6 % LVAd ap2 46.9 cm\S\2 LVLd ap2 8.6 cm EDV(MOD-sp2) 209.9 ml EDV(sp2-el) 217.4 ml LVAs ap2 34.3 cm\S\2 LVLs ap2 7.4 cm ESV(MOD-sp2) 129.6 ml ESV(sp2-el) 134.4 ml EF(MOD-sp2) 38.2 % EF(sp2-el) 38.2 % LVLd %diff 3.1 % EDV(MOD-bp) 168.2 ml LVLs %diff -6.45 % ESV(MOD-bp) 105.0 ml EF(MOD-bp) 37.6 % SV(MOD-sp4) 49.3 ml SI(MOD-sp4) 23.8 ml/m\S\2 SV(MOD-sp2) 80.3 ml SI(MOD-sp2) 38.7 ml/m\S\2 SV(MOD-bp) 63.2 ml SI(MOD-bp) 30.5 ml/m\S\2 SV(sp4-el) 49.6 ml SI(sp4-el) 23.9 ml/m\S\2 SV(sp2-el) 83.1 ml SI(sp2-el) 40.0 ml/m\S\2 Doppler Measurements and Calculations MV E max antoinette 119.1 cm/sec MV A max antoinette 77.6 cm/sec MV E/A 1.5 MV dec time 0.18 sec Ao V2 max 133.0 cm/sec Ao max PG 7.1 mmHg Ao max PG (full) 4.5 mmHg CHRISTOPHER(V,A) 1.8 cm\S\2 CHRISTOPHER(V,D) 1.8 cm\S\2 LV V1 max PG 2.5 mmHg LV V1 max 79.8 cm/sec PA V2 max 89.7 cm/sec PA max PG 3.2 mmHg PA acc slope 496.0 cm/sec\S\2 PA acc time 0.14 sec PI end-d antoinette 163.9 cm/sec TR max antoinette 283.4 cm/sec PA pr(Accel) 14.4 mmHg
[2016-12-28] MEDS: CARVEDILOL 25 MG TAB PO SCH (20:45)
[2016-12-28] MEDS: MAGNESIUM OXIDE 400 MG TAB PO SCH (20:45)
[2016-12-28] MEDS: FAMOTIDINE 20 MG TAB PO SCH (20:46)
[2016-12-28] MEDS: DABIGATRAN ELEXILATE 75 MG CAP PO SCH (20:47)
[2016-12-28] MEDS: TRIAMCINOLONE ACET 0.1% OINT 15 GM TUBE TOP SCH (20:51)
[2016-12-28] MEDS ORDERED: ACETAMINOPHEN 500 MG TAB PO SCH (21:00)
[2016-12-28] MEDS ORDERED: NON-FORMULARY MEDICATION (Acetaminophen/Diphenhydramine (Tylenol Pm) 1 TAB) PO SCH (21:00)
[2016-12-28] MEDS: INSULIN GLARGINE SOLOSTAR 100 UNITS/ML 3 ML PEN SQ SCH (21:47)
[2016-12-29] VITALS (12 sets, daily range): BP systolic 91–133; BP diastolic 46–77; PULSE 42–88; TEMP 36.3–36.6; O2SAT 92–96
[2016-12-29] MEDS: LEVOTHYROXINE 88 MCG TAB PO SCH (06:28)
[2016-12-29 06:32] LABS: BUN/CREATININE RATIO 11.9 (10-20); CREATININE 1.46 mg/dl (0.60-1.40); POTASSIUM 3.5 mmol/L (3.5-5.1)
[2016-12-29] MEDS: FUROSEMIDE INJ 40 MG in SYRINGE 0 ML IV SCH ×2 (08:52→16:28)
[2016-12-29] MEDS: AMIODARONE 200 MG TAB PO SCH (08:54)
[2016-12-29] MEDS: CARVEDILOL 25 MG TAB PO SCH ×2 (08:56→19:44)
[2016-12-29] MEDS: ASPIRIN 81 MG ECTAB PO SCH (08:57)
[2016-12-29] MEDS ORDERED: ASPIRIN 81 MG ECTAB PO SCH (09:00)
[2016-12-29] MEDS: ISOSORBIDE MONONITRATE 30 MG TABCR PO SCH (09:00)
[2016-12-29] MEDS: TRIAMCINOLONE ACET 0.1% OINT 15 GM TUBE TOP SCH ×3 (09:00→19:45)
[2016-12-29] MEDS: POTASSIUM CHLORIDE 10 MEQ TABCR PO SCH (09:01)
[2016-12-29] MEDS: MAGNESIUM OXIDE 400 MG TAB PO SCH ×2 (09:02→19:42)
[2016-12-29] MEDS: FAMOTIDINE 20 MG TAB PO SCH ×2 (09:03→19:46)
[2016-12-29] MEDS: DABIGATRAN ELEXILATE 75 MG CAP PO SCH ×2 (09:04→19:44)
[2016-12-29] MEDS: FINASTERIDE 5 MG TAB PO SCH (09:05)
[2016-12-29] MEDS: LISINOPRIL 10 MG TAB PO SCH (09:06)
[2016-12-29] MEDS: INSULIN GLARGINE SOLOSTAR 100 UNITS/ML 3 ML PEN SQ SCH ×2 (09:19→19:48)
--- NOTE | 2016-12-29 17:42 | Progress Note ---
Subjective Date of Service: Dec 29, 2016. Subjective Pt evaluation today including: conversation w/ patient, conversation w/ family , physical exam, chart review, lab review, review of studies, review of inpatient medication list Problem List Medical Problems: (1) CHF (congestive heart failure) Status: Acute (2) CHF exacerbation Status: Acute (3) Closed impacted fracture of left hip Status: Acute (4) Non-STEMI (non-ST elevated myocardial infarction) Status: Acute (5) Renal insufficiency Status: Acute Review of Systems Constitutional: No see HPI, No fever, No chills, No sweats, No weight loss, No weakness, No fatigue, No problem reported Eyes: No see HPI, No worsening of vision, No eye pain, No redness, No discharge , No diplopia, No problem reported ENT: No see HPI, No hearing loss, No unusual epistaxis, No nasal symptoms, No sore throat, No tinnitus, No dental problems, No trouble swallowing, No problem reported Respiratory: No see HPI, No cough, No sputum, No wheezing, No shortness of breath, No dyspnea on exertion, No dyspnea at rest, No hemoptysis, No problem reported Cardiac: No see HPI, No chest pain, No orthopnea, No PND, No edema, No claudication, No palpitations, No problem reported Abdomen: No see HPI, No pain, No nausea, No vomiting, No diarrhea, No constipation, No GI bleeding, No problem reported Musculoskeletal: No see HPI, No joint pain, No muscle pain, No swelling, No calf pain, No problem reported Male : No see HPI, No dysuria, No urinary frequency, No incontinence, No nocturia more than once/night, No slowing stream, No hematuria, No sexual dysfunction, No problem reported Neurologic: No see HPI, No memory loss, No paralysis, No weakness, No numbness/ tingling, No vertigo, No balance problems, No problem reported Psychiatric: No see HPI, No depression symptoms, No anhedonism, No anxiety, No insomnia, No substance abuse, No problem reported Heme: No see HPI, No abnormal bleeding/bruising, No clotting problems, No swollen lymph nodes, No night sweats, No problem reported Endo: No see HPI, No fatigue, No excessive thirst, No excessive urination, No problem reported Skin: No see HPI, No rash, No itch, No new/changing skin lesions, No color change, No bleeding, No problem reported Objective Vital Signs Date Time Temp Pulse Resp B/P (MAP) Pulse Ox O2 Delivery O2 Flow Rate FiO2 12/29/16 16:33 88 120/76 (91) 12/29/16 16:00 95 Room Air 12/29/16 15:26 36.5 63 16 97/59 (72) 95 Room Air 12/29/16 12:59 95 Room Air 12/29/16 12:51 36.4 66 16 121/76 (91) 95 Room Air 12/29/16 12:00 Room Air 12/29/16 11:29 36.4 61 12 99/61 (74) 95 Room Air 102/64 (77) 12/29/16 10:07 69 133/77 (95) 95 Room Air 12/29/16 09:38 92 Room Air 12/29/16 08:03 36.6 61 20 101/65 (77) 92 Room Air 110/69 (83) 110/46 (67) 12/29/16 08:00 Room Air 12/29/16 04:05 Room Air 12/29/16 03:55 36.3 60 16 121/53 (75) 95 Room Air 12/29/16 00:05 Room Air 12/28/16 23:48 36.7 67 16 101/62 (75) 93 Room Air 12/28/16 20:00 93 Room Air 12/28/16 19:39 36.3 68 18 121/62 (81) 94 Room Air Physical Exam General Appearance: WD/WN, no apparent distress Eyes: normal inspection, EOMI ENT: normal ENT inspection, hearing grossly normal Neck: supple Respiratory/Chest: chest non-tender, lungs clear, normal breath sounds, no respiratory distress, no accessory muscle use Cardiovascular: regular rate, rhythm, no edema, no gallop, no JVD Abdomen: normal bowel sounds, non tender, soft, no organomegaly Extremities: normal range of motion, non-tender, normal inspection, no pedal edema 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, no motor/sensory deficits, alert, normal mood/affect, oriented x 3 Skin: normal color, warm/dry, no rash Laboratory Results Last 24 Hours Test 12/28/16 20:07 12/28/16 22:04 12/29/16 05:18 12/29/16 07:26 Bedside Glucose 118 mg/dl 190 mg/dl Troponin I 0.646 ng/ml Sodium Level 138 mmol/L Potassium Level 3.5 mmol/L Chloride Level 100 mmol/L Carbon Dioxide Level 30 mmol/L Anion Gap 8.0 mmol/L Blood Urea Nitrogen 17 mg/dl Creatinine 1.46 mg/dl Est Creatinine Clear Calc Drug Dose 52.9 ml/min Estimated GFR () 56.1 Estimated GFR (Non- 48.4 BUN/Creatinine Ratio 11.9 Random Glucose 117 mg/dl Calcium Level 8.0 mg/dl 25-Hydroxy Vitamin D Total 21.9 ng/ml Test 12/29/16 09:54 12/29/16 11:23 Bedside Glucose 187 mg/dl 162 mg/dl Assessment and Plan 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 Appears to be purely due to lack of compliance with diet. I think it's appropriate to give patient extensive education about his dietary habits and send him to outpatient director of finance, and that defect I feel that he can go on the same Lasix dose upon discharge Iron study was done and was within normal limits Will add B12 and folic acid Hemoglobin A1c is 6.9 which will be discussed with the patient LDL is 71 which appears to be at target Vitamin D is 22, needs replacement Heparin for DVT prophylaxis Aortic valve sclerosis moderate, without significant aortic valvular stenosis. Ejection fraction 35-40%
[2016-12-29] MEDS ORDERED: ACETAMINOPHEN 500 MG TAB PO SCH (21:00)
[2016-12-30 04:40] VITALS: BP 106/60; PULSE 62; TEMP 36.4; O2SAT 95
[2016-12-30 05:45] LABS: BASO % 0.9 %; BASO ABS # 0.07 K/uL (0-0.2); EOS % 5.5 %; HEMATOCRIT 34.8 % (42-52); IG% 0.4 %; LYMPH % 26.6 %; LYMPH ABS # 2.12 K/uL (1.2-3.4); MEAN CELL VOLUME 86.1 fL (80-100); MEAN CORPUSCULAR HEMOGLOBIN 26.5 pg (25-34); MEAN CORPUSCULAR HGB CONC 30.7 g/dl (32-36); MEAN PLATELET VOLUME 12.2 fL (7.4-10.4); MONO % 9.7 %; NEUT % 56.9 %; PLATELET COUNT 203 K/uL (130-400); RED BLOOD COUNT 4.04 M/uL (4.7-6.1); WHITE BLOOD COUNT 7.96 K/uL (4.8-10.8)
[2016-12-30] MEDS: LEVOTHYROXINE 88 MCG TAB PO SCH (05:48)
[2016-12-30 06:15] LABS: BUN/CREATININE RATIO 13.1 (10-20); CREATININE 1.87 mg/dl (0.60-1.40); MAGNESIUM 2.3 mg/dl (1.8-2.4); POTASSIUM 3.4 mmol/L (3.5-5.1)
[2016-12-30 06:18] LABS: ALB/GLOB RATIO 1.1 (0.9-2)
[2016-12-30 06:23] LABS: ANISOCYTOSIS PRESENT; COMPLETE YES; OVALOCYTES 1+
[2016-12-30 07:13] VITALS: BP 104/60; PULSE 60; TEMP 36.6; O2SAT 97
[2016-12-30] MEDS: FAMOTIDINE 20 MG TAB PO SCH (08:45)
[2016-12-30] MEDS: TRIAMCINOLONE ACET 0.1% OINT 15 GM TUBE TOP SCH (08:45)
[2016-12-30] MEDS: FINASTERIDE 5 MG TAB PO SCH (08:46)
[2016-12-30] MEDS: CARVEDILOL 25 MG TAB PO SCH (08:46)
[2016-12-30] MEDS: POTASSIUM CHLORIDE 10 MEQ TABCR PO SCH (08:46)
[2016-12-30] MEDS: DABIGATRAN ELEXILATE 75 MG CAP PO SCH (08:47)
[2016-12-30] MEDS: AMIODARONE 200 MG TAB PO SCH (08:48)
[2016-12-30] MEDS: ISOSORBIDE MONONITRATE 30 MG TABCR PO SCH (08:48)
[2016-12-30] MEDS: ASPIRIN 81 MG ECTAB PO SCH (08:48)
[2016-12-30] MEDS: LISINOPRIL 10 MG TAB PO SCH (08:49)
[2016-12-30] MEDS: MAGNESIUM OXIDE 400 MG TAB PO SCH (08:51)
[2016-12-30] MEDS: INSULIN GLARGINE SOLOSTAR 100 UNITS/ML 3 ML PEN SQ SCH (08:53)
[2016-12-30 08:56] VITALS: BP 115/69; PULSE 69
[2016-12-30] MEDS ORDERED: NTRSLP4 SL (10:16)
--- NOTE | 2016-12-30 10:19 | Discharge Instructions ---
Discharge Instructions Date of Service Dec 30, 2016. Admission Reason for Admission: Shortness Of Breath Discharge Discharge Diagnosis / Problem: acute congestive heart failure Discharge Goals Goal(s): Decrease discomfort Activity Recommendations Activity Limitations: resume your previous activity . Instructions / Follow-Up Instructions / Follow-Up follow up with Dr. Pollack on Monday Current Hospital Diet Patient's current hospital diet: Low Sodium Diet (2gm Na), Diabetes Type 2 Diet Discharge Diet Recommended Diet: AHA Diet (Heart Healthy), Low Sodium Diet (2gm Na) Pending Studies Studies pending at discharge: no Laboratory Results Hemoglobin A1c Test 12/28/16 06:50 Range/Units Estimated Average Glucose 151 mg/dl Hemoglobin A1c 6.9 H 4.5-5.6 % Medical Emergencies . Who to Call and When: Medical Emergencies: If at any time you feel your situation is an emergency, please call 911 immediately. . Non-Emergent Contact Non-Emergency issues call your: Primary Care Provider . . "Provider Documentation" section prepared by Alyse Alanis. . VTE Core Measure Inpt VTE Proph given/why not?: Other Anticoagulation
[2016-12-30 10:51] VITALS: BP 115/69; PULSE 69; TEMP 36.6; O2SAT 97
--- NOTE | 2016-12-30 15:51 | Discharge Summary ---
Discharge Summary Date of Service Dec 30, 2016. Discharge Summary Admission Date: Dec 28, 2016 at 19:08 Discharge Date: Dec 30, 2016 Discharge Disposition: Home Principal Diagnosis: Acute on chronic combined diastolic and systolic congestive heart failure Problems/Secondary Diagnoses: Anemia of chronic disease Postoperative troponin secondary to demand ischemia Cardiomyopathy status post pacemaker/AICD Obesity with BMI of 51 Hypothyroidism on Synthroid Diabetes mellitus type Chronic kidney disease stage III Immunizations: Have You Had Influenza Vaccine: Yes Influenza Vaccine Date: Dec 10, 2012 History of Tetanus Vaccine?: Unknown History of Pneumococcal: Yes Pneumococcal Date: Apr 11, 2012 History of Hepatitis B Vaccine: Unknown Medication Reconciliation New Medications: Nitroglycerin (Nitrostat) 0.4 Mg/1 Tab Subl 0.4 MG SL UD PRN for Chest Pain for 30 Days, #25 TAB Continued Medications: Acetaminophen/Diphenhydramine (Tylenol Pm) 500 Mg/25 Mg Tab 1 TAB PO HS, TAB Amiodarone Hcl (Cordarone) 200 Mg Tab 200 MG PO DAILY, TAB Aspirin (Aspirin Ec) 81 Mg Tab 81 MG PO DAILY Carvedilol (Coreg) 25 Mg Tab 25 MG PO BID, TAB Dabigatran Etexilate Mesylate (Pradaxa) 150 Mg Cap 150 MG PO BID, CAP Finasteride (Proscar) 5 Mg Tab 5 MG PO DAILY, TAB Insulin Glargine (Lantus Solostar) 100 Unit/Ml Inj 25 UNITS SQ BID for 30 Days Isosorbide Mononitrate Ext Rel (Imdur Ext Rel) 30 Mg Tabcr 30 MG PO QAM, TAB Levothyroxine Sodium (Synthroid) 88 Mcg Tab 88 MCG PO DAILY, TAB Magnesium Oxide (Mag-Ox) 400 Mg Tab 400 MG PO BID, 0 Refills Potassium Chloride (Micro-K Ext Rel) 10 Meq Capcr 10 MEQ PO DAILY, CAP Triamcinolone Acet (Triamcinolone Acetonide) 45 Appln/15 Gm Oint 1 APPLN TOP BID for 7 Days, #1 TUBE Discontinued Medications: Famotidine (Pepcid) 20 Mg Tab 20 MG PO BID, TAB Furosemide (Lasix) 40 Mg Tab 40 MG PO BID UD, TAB TAKE 1 TAB IN AM & 2ND TAB @1400 Furosemide (Lasix) 40 Mg Tab 40 MG PO DAILY PRN for WT GAIN, OR EDEMA, TAB Lisinopril (Prinivil) 10 Mg Tab 10 MG PO DAILY, TAB Discharge Exam Review of Systems: Constitutional: No fever, No chills, No sweats, No weight loss, No weakness , No fatigue, No problem reported Eyes: No worsening of vision, No eye pain, No redness, No discharge, No diplopia, No problem reported ENT: No hearing loss, No unusual epistaxis, No nasal symptoms, No sore throat, No tinnitus, No dental problems, No trouble swallowing, No problem reported Respiratory: No cough, No sputum, No wheezing, No shortness of breath, No dyspnea on exertion, No dyspnea at rest, No hemoptysis, No problem reported Cardiovascular: No chest pain, No orthopnea, No PND, No edema, No claudication, No palpitations, No problem reported Abdomen: No pain, No nausea, No vomiting, No diarrhea, No constipation, No GI bleeding, No problem reported Musculoskeletal: No joint pain, No muscle pain, No swelling, No calf pain, No problem reported Genitourinary - Male: No hematuria, No dysuria, No urinary frequency, No urinary urgency, No urinary hesitancy, No urinary retention, No urinary incontinence, No penile discharge, No lesions, No impotence, No problem reported Neurologic: No memory loss, No paralysis, No weakness, No numbness/tingling , No vertigo, No balance problems, No problem reported Psychiatric: No depression symptoms, No anhedonism, No anxiety, No insomnia , No substance abuse, No problem reported Endocrine: No fatigue, No excessive thirst, No excessive urination, No problem reported Hematologic / Lymphatic: No abnormal bleeding/bruising, No clotting problems , No swollen lymph nodes, No night sweats, No problem reported Integumentary: No rash, No itch, No new/changing skin lesions, No color change, No bleeding, No problem reported Hospital Course 71 years old man with past medical history of combined systolic and diastolic congestive heart failure. Patient woke up at 6 AM with severe shortness of breath. He came to the ED was found to have congestive heart failure. Patient admitted to noncompliance in his diet. Patient was admitted to a telemetry floor. He was started on Lasix 40 mg IV twice a day. Unfortunately documentation of intake and output was fairly not accurate giving the fact that the patient did not have a Nunez. Patient symptoms significantly improved but he developed some kidney injury, creatinine jumped to 1.87 from 1.5. Patient was offered to stay 1 more day after holding Lasix area but patient wanted to leave and see his primary care physician on Monday. I spoke with Dr. Pollack patient primary care physician who will repeat renal function on Monday. This appears to be patient's first admission in 1 year for CHF about 9 months ago patient had an admission for AICD firing. Appears to be purely due to lack of compliance with diet. 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 Ejection fraction 35-40% Total Time Spent: Greater than 30 minutes This includes examination of the patient, discharge planning, medication reconciliation, and communication with other providers. Discharge Instructions Please refer to the electronic Patient Visit Report (Discharge Instructions) for additional information.
== END 2016-12-30 12:25 | disposition home or self-care (01) | DRG 291 ==
LOC: C.EDB 06:31 → C.MED 07:58 → ENRESERV 08:53 → OBSVTOIN 19:08
PROVIDERS: ADMIT Family Medicine; ATTEND Internal Medicine
DX: I13.0 Hypertensive heart and chronic kidney disease with heart failure and stage 1 through stage 4 chronic kidney disease, or unspecified chronic kidney disease (principal); I50.43 Acute on chronic combined systolic (congestive) and diastolic (congestive) heart failure; Z68.43 Body mass index [BMI] 50.0-59.9, adult; I24.8 Other forms of acute ischemic heart disease; I48.91 Unspecified atrial fibrillation; N18.3 Chronic kidney disease, stage 3 (moderate); E11.21 Type 2 diabetes mellitus with diabetic nephropathy; I42.0 Dilated cardiomyopathy; I25.2 Old myocardial infarction; Z95.810 Presence of automatic (implantable) cardiac defibrillator; Z79.4 Long term (current) use of insulin; E83.51 Hypocalcemia; D63.8 Anemia in other chronic diseases classified elsewhere; E66.9 Obesity, unspecified; E03.9 Hypothyroidism, unspecified; I25.10 Atherosclerotic heart disease of native coronary artery without angina pectoris; N40.0 Benign prostatic hyperplasia without lower urinary tract symptoms

== ENCOUNTER → 2017-01-02 | Outpatient (CLI) | payer OTHER ==
[~2017-01-02] MED LIST changes: +AMIO200T4 PO; -AMIO400T3 PO; -FAMO20TA11 PO; +FINA5TAB PO; -FRS/40 PO; +LEVO88TA PO; -LISI10TA PO; -MXT150 PO; +NTRSLP4 SL; -POTA-327 PO; +POTA10CA28 PO; -PRS5 PO; -TRIA0.1O12 TOP; +TRMO115 TOP
[2017-01-02 12:45] LABS: BLOOD UREA NITROGEN 15 mg/dl (7-18); BUN/CREATININE RATIO 10.3 (10-20); CALCIUM 8.5 mg/dl (8.5-10.1); CARBON DIOXIDE 29 mmol/L (21-32); CHLORIDE 103 mmol/L (98-107); CREATININE 1.44 mg/dl (0.60-1.40); GLUCOSE 170 mg/dl (70-99); POTASSIUM 4.7 mmol/L (3.5-5.1); SODIUM 136 mmol/L (136-145)
== END | disposition home or self-care (01) ==
LOC: C.LABBFT 10:10
PROVIDERS: ATTEND Internal Medicine
DX: N18.3 Chronic kidney disease, stage 3 (moderate) (principal)

== ENCOUNTER → 2017-03-14 | Outpatient (CLI) | payer OTHER ==
[~2017-03-14] MED LIST changes: +ACET-1047 PO; +CIPR-304 PO; +CRD200 PO; +CRG25 PO; +DABI150C3 PO; +FAMO1TAB47 PO; +FRS/40 PO; +INSDGIPEN SC; -INSDGIPEN SQ; +INSU3INJ3 SC; +LISI-461 PO; +METR-163 PO; +NTRGSL/4 UT; -NTRSLP4 SL; +ONDA4TAB10 SL; +POTA-639 PO; +PRS5 PO; +SACC250C3 PO; +SYN88 PO; +VTMD1000 PO
[2017-03-14 17:18] LABS: BASO % 0.9 %; BASO ABS # 0.07 K/uL (0-0.2); EOS % 5.7 %; EOS ABS # 0.44 K/uL (0-0.5); HEMATOCRIT 35.4 % (42-52); HEMOGLOBIN 10.9 g/dL (14.0-18.0); IG# 0.04 K/uL (0.00-0.02); LYMPH ABS # 1.54 K/uL (1.2-3.4); MEAN CELL VOLUME 78.8 fL (80-100); MEAN CORPUSCULAR HEMOGLOBIN 24.3 pg (25-34); MEAN CORPUSCULAR HGB CONC 30.8 g/dl (32-36); MEAN PLATELET VOLUME 12.1 fL (7.4-10.4); MONO ABS # 0.77 K/uL (0.11-0.59); NEUT % 62.9 %; NEUT ABS # 4.85 K/uL (1.4-6.5); PLATELET COUNT 229 K/uL (130-400); RED CELL DISTRIBUTION WIDTH CV 17.8 % (11.5-14.5); RED CELL DISTRIBUTION WIDTH SD 44.8 fL (36.4-46.3); WHITE BLOOD COUNT 7.71 K/uL (4.8-10.8)
[2017-03-14 19:39] LABS: ALBUMIN 3.5 gm/dl (3.4-5.0); ALT/SGPT 47 U/L (12-78); AST/SGOT 49 U/L (15-37); BLOOD UREA NITROGEN 23 mg/dl (7-18); CALCIUM 8.2 mg/dl (8.5-10.1); CARBON DIOXIDE 30 mmol/L (21-32); CREATININE 1.65 mg/dl (0.60-1.40); GLUCOSE 180 mg/dl (70-99); POTASSIUM 3.8 mmol/L (3.5-5.1); SODIUM 137 mmol/L (136-145)
[2017-03-14 19:48] LABS: ALKALINE PHOSPHATASE 78 U/L (45-117); CHOLESTEROL 107 mg/dl (0-200); LDL CHOLESTEROL CALCULATED 42 mg/dl; TOTAL PROTEIN 6.8 gm/dl (6.4-8.2)
== END | disposition home or self-care (01) ==
LOC: C.LABBFT 13:28
PROVIDERS: ATTEND Internal Medicine
DX: E03.9 Hypothyroidism, unspecified (principal); E11.21 Type 2 diabetes mellitus with diabetic nephropathy; Z79.899 Other long term (current) drug therapy

== ENCOUNTER → 2017-07-19 | Outpatient (CLI) | payer OTHER ==
[~2017-07-19] MED LIST changes: -ACET-1047 PO; -CIPR-304 PO; -CRD200 PO; -CRG25 PO; -DABI150C3 PO; -FAMO1TAB47 PO; -FRS/40 PO; -INSU3INJ3 SC; -LISI-461 PO; -METR-163 PO; -ONDA4TAB10 SL; -POTA-639 PO; -PRS5 PO; -SACC250C3 PO; -SYN88 PO; -VTMD1000 PO
[2017-07-19 17:16] LABS: BASO % 0.6 %; BASO ABS # 0.06 K/uL (0-0.2); EOS % 3.4 %; EOS ABS # 0.32 K/uL (0-0.5); HEMOGLOBIN 12.1 g/dL (14.0-18.0); IG# 0.06 K/uL (0.00-0.02); LYMPH % 20.2 %; LYMPH ABS # 1.89 K/uL (1.2-3.4); MEAN CELL VOLUME 76.6 fL (80-100); MEAN CORPUSCULAR HEMOGLOBIN 24.4 pg (25-34); MEAN CORPUSCULAR HGB CONC 31.8 g/dl (32-36); MEAN PLATELET VOLUME 11.2 fL (7.4-10.4); MONO % 9.8 %; MONO ABS # 0.92 K/uL (0.11-0.59); NEUT % 65.4 %; NEUT ABS # 6.12 K/uL (1.4-6.5); PLATELET COUNT 269 K/uL (130-400); RED CELL DISTRIBUTION WIDTH CV 18.6 % (11.5-14.5); RED CELL DISTRIBUTION WIDTH SD 44.5 fL (36.4-46.3); WHITE BLOOD COUNT 9.37 K/uL (4.8-10.8)
[2017-07-19 17:30] LABS: ALBUMIN 3.8 gm/dl (3.4-5.0); ALT/SGPT 62 U/L (12-78); AST/SGOT 70 U/L (15-37); BLOOD UREA NITROGEN 20 mg/dl (7-18); CALCIUM 8.3 mg/dl (8.5-10.1); CARBON DIOXIDE 30 mmol/L (21-32); CHOLESTEROL 122 mg/dl (0-200); GLUCOSE 131 mg/dl (70-99); POTASSIUM 3.9 mmol/L (3.5-5.1); SODIUM 137 mmol/L (136-145)
[2017-07-19 17:41] LABS: ALKALINE PHOSPHATASE 84 U/L (45-117); LDL CHOLESTEROL CALCULATED 54 mg/dl; TOTAL PROTEIN 7.1 gm/dl (6.4-8.2)
[2017-07-20 06:44] LABS: HEMOGLOBIN A1C 7.2 % (4.5-5.6)
== END | disposition home or self-care (01) ==
LOC: C.LABBFT 15:33
PROVIDERS: ATTEND Internal Medicine
DX: E11.21 Type 2 diabetes mellitus with diabetic nephropathy (principal)

== ENCOUNTER 2017-10-17 21:13 | Emergency (ER) | payer OTHER ==
[~2017-10-17] VITALS: Ht 172.7 cm; Wt 92.2 kg
[2017-10-17 21:16] VITALS: Ht 172.7 cm; Wt 92.2 kg
--- NOTE | 2017-10-17 21:39 | EMERGENCY ROOM VISIT NOTE ---
History Report prepared by Nate: Henrique Marquez Under the Supervision of: Dr. Wei Mendoza M.D. First contact with patient: 21:30 Chief Complaint: DIARRHEA Stated Complaint: SUGAR IS LOW, DIARRHEA, History of Present Illness The patient is a 72 year old male who presents to the Emergency Room with complaints of intermittent diarrhea beginning yesterday. The patient reports that today he has had around 20 episodes of diarrhea. He notes the diarrhea is watery and light brown. He states that the food goes "straight through" him when he eats, and he reports that he does not always make it to the bathroom. The patient notes that he had to clod puller on the side of the road on the way to the ER to have a bowel movement. He denies changing his diet or eating out recently. He denies being on recent antibiotics. The patient denies fevers, chills, cough, dizziness, or lightheadedness. He reports that he takes Pradaxa, aspirin, and a water pill. He states that he has diabetes and is on insulin for it. He notes he has been eating for the past couple days, but not very much today. He states that he has a defibrillator. He notes a history of cardiac ablation, A-fib, and congestive heart failure. Source of History: patient Onset: yesterday Symptom Intensity: around 20 episodes today Quality: other (diarrhea) Timing: intermittent Associated Symptoms: + fevers, + chills, + cough Note: denies dizziness or lightheadedness Review of Systems See HPI for pertinent positives and negatives. A total of ten systems were reviewed and were otherwise negative. Past Medical & Surgical Medical Problems: (1) Atrial fibrillation (2) Benign hypertension (3) CHF (congestive heart failure) (4) Chronic kidney disease, stage II (mild) (5) Diabetes mellitus (6) Ischemic cardiomyopathy (7) Left Femoral Neck Fracture (8) Myocardial infarction (9) Pneumonia (10) Shortness of breath (11) Urinary retention Family History FH: HTN (hypertension) FH: cancer FH: thyroid condition FHx: diabetes mellitus FHx: heart disease Social History Smoking Status: Never Smoker Alcohol Use: none Drug Use: none Marital Status: Housing Status: lives with family Occupation Status: retired Current/Historical Medications Scheduled Acetaminophen/Diphenhydramine (Tylenol Pm), 1 TAB PO HS Amiodarone Hcl (Cordarone), 200 MG PO DAILY Aspirin (Aspirin Ec), 81 MG PO DAILY Carvedilol (Coreg), 25 MG PO BID Ciprofloxacin HCl (Ciprofloxacin), 1 TAB PO BID Dabigatran Etexilate Mesylate (Pradaxa), 150 MG PO BID Finasteride (Proscar), 5 MG PO DAILY Insulin Detemir (Levemir Flextouch), 50 UNITS INJ BID Isosorbide Mononitrate Ext Rel (Imdur Ext Rel), 30 MG PO QAM Levothyroxine Sodium (Synthroid), 88 MCG PO DAILY Magnesium Oxide (Mag-Ox), 400 MG PO BID Metronidazole (Flagyl), 500 MG PO TID Ondasetron Odt (Zofran Odt), 4 MG SL Q6H Potassium Chloride (Micro-K Ext Rel), 10 MEQ PO DAILY Saccharomyces Boulardii (Florastor), 1 CAP PO BID Scheduled PRN Triamcinolone Acet (Triamcinolone Acetonide), 1 APPLN TOP BID PRN for Itching Allergies Coded Allergies: Midazolam (Verified Allergy, Intermediate, "Made me go wild", 10/17/17) Adhesives (Verified Allergy, Unknown, RASH, 10/17/17) Bacitracin (Verified Allergy, Unknown, RASH, 10/17/17) Neomycin (Verified Allergy, Unknown, RASH, 10/17/17) Polymyxin B (Verified Allergy, Unknown, RASH, 10/17/17) Rosuvastatin (Verified Allergy, Unknown, RASH, 10/17/17) Risperidone (Verified Adverse Reaction, Severe, confusion, disorientation , 10/17/17) Metformin (Verified Adverse Reaction, Mild, DIARRHEA, 10/17/17) Oxycodone (Verified Adverse Reaction, Unknown, PT STATES THAT IT MAKES HIM MEAN OR ANGRY, 10/17/17) Quetiapine (Verified Adverse Reaction, Unknown, GETS COMBATIVE, 10/17/17) Physical Exam Vital Signs Date Time Temp Pulse Resp B/P (MAP) Pulse Ox O2 Delivery O2 Flow Rate FiO2 10/18/17 00:34 36.5 72 20 111/72 99 Room Air 10/17/17 22:36 64 20 126/76 97 Room Air 10/17/17 21:42 61 10/17/17 21:16 36.5 85 18 123/72 96 Room Air Physical Exam GENERAL: Fatigued and uncomfortable-appearing, in no acute distress HENT: Normocephalic, atraumatic. Mucous membranes are dry. EYES: Normal conjunctiva. Sclera non-icteric. NECK: Supple. No nuchal rigidity. FROM. No JVD. RESPIRATORY: Clear to auscultation. CARDIAC: Regular rate, normal rhythm. Extremities warm and well perfused. Pulses equal. ABDOMEN: Soft, non-distended. No tenderness to palpation. No rebound or guarding. No masses. RECTAL: Deferred. MUSCULOSKELETAL: Chest examination reveals no tenderness. The back is symmetrical on inspection without obvious abnormality. There is no CVA tenderness to palpation. No joint edema. LOWER EXTREMITIES: Calves are equal size bilaterally and non-tender. No edema. No discoloration. NEURO: Normal sensorium. No sensory or motor deficits noted. SKIN: No rash or jaundice noted. Medical Decision & Procedures ER Provider Diagnostic Interpretation: Radiology results as stated below per my review and radiologist interpretation: CHEST ONE VIEW PORTABLE HISTORY: Generalized abdominal pain. COMPARISON: Chest 02/10/2017. FINDINGS: Left-sided pacemaker/defibrillator is again noted. The heart remains mildly enlarged. No pleural effusions. No pneumothorax. No new focal lung consolidations to suggest pneumonia. No evidence for pulmonary edema. IMPRESSION: No significant change compared to the prior study. No acute process. Stable mild cardiomegaly. Electronically signed by: Zan Tuttle M.D. 10/17/2017 11:30 PM Dictated Date/Time: 10/17/2017 11:29 PM [facility] Preliminary Findings Only See Final Report For Complete Findings CT ABDOMEN & PELVIS Without Contrast: Fluid in the colon suggesting diarrhea. Unremarkable appendix. Dense liver. Cholelithiasis. Right renal cyst. Pin Fixation of the left hip. Cardiomegaly and AICD. Radiologist: Marianne Holder M.D. Study ready at 23:39 and initial results transmitted at 00:18 Laboratory Results 10/17/17 21:36 Red Blood Count 4.69, Mean Corpuscular Volume 80.2, Mean Corpuscular Hemoglobin 25.6, Mean Corpuscular Hemoglobin Concent 31.9, Mean Platelet Volume 11.1, Neutrophils (%) (Auto) 66.0, Lymphocytes (%) (Auto) 16.2, Monocytes (%) (Auto) 10.6, Eosinophils (%) (Auto) 6.1, Basophils (%) (Auto) 0.5, Neutrophils # (Auto ) 6.92, Lymphocytes # (Auto) 1.70, Monocytes # (Auto) 1.11, Eosinophils # (Auto ) 0.64, Basophils # (Auto) 0.05 10/17/17 21:36 Test 10/17/17 21:36 10/17/17 22:25 10/18/17 00:42 White Blood Count 10.48 K/uL (4.8-10.8) Red Blood Count 4.69 M/uL (4.7-6.1) Hemoglobin 12.0 g/dL (14.0-18.0) Hematocrit 37.6 % (42-52) Mean Corpuscular Volume 80.2 fL (80-100) Mean Corpuscular Hemoglobin 25.6 pg (25-34) Mean Corpuscular Hemoglobin Concent 31.9 g/dl (32-36) Platelet Count 254 K/uL (130-400) Mean Platelet Volume 11.1 fL (7.4-10.4) Neutrophils (%) (Auto) 66.0 % Lymphocytes (%) (Auto) 16.2 % Monocytes (%) (Auto) 10.6 % Eosinophils (%) (Auto) 6.1 % Basophils (%) (Auto) 0.5 % Neutrophils # (Auto) 6.92 K/uL (1.4-6.5) Lymphocytes # (Auto) 1.70 K/uL (1.2-3.4) Monocytes # (Auto) 1.11 K/uL (0.11-0.59) Eosinophils # (Auto) 0.64 K/uL (0-0.5) Basophils # (Auto) 0.05 K/uL (0-0.2) RDW Standard Deviation 44.6 fL (36.4-46.3) RDW Coefficient of Variation 19.6 % (11.5-14.5) Immature Granulocyte % (Auto) 0.6 % Immature Granulocyte # (Auto) 0.06 K/uL (0.00-0.02) Anion Gap 9.0 mmol/L (3-11) Est Creatinine Clear Calc Drug Dose 44.3 ml/min Estimated GFR () 46.0 Estimated GFR (Non- 39.7 BUN/Creatinine Ratio 10.2 (10-20) Calcium Level 7.8 mg/dl (8.5-10.1) Phosphorus Level 2.6 mg/dl (2.5-4.9) Magnesium Level 1.9 mg/dl (1.8-2.4) Total Bilirubin 0.5 mg/dl (0.2-1) Direct Bilirubin 0.2 mg/dl (0-0.2) Aspartate Amino Transf (AST/SGOT) 88 U/L (15-37) Alanine Aminotransferase (ALT/SGPT) 66 U/L (12-78) Alkaline Phosphatase 85 U/L (45-117) Total Protein 6.9 gm/dl (6.4-8.2) Albumin 3.7 gm/dl (3.4-5.0) Lipase 123 U/L (73-393) Urine Color YELLOW Urine Appearance CLEAR (CLEAR) Urine pH 5.0 (4.5-7.5) Urine Specific [place] 1.010 (1.000-1.030) Urine Protein NEG (NEG) Urine Glucose (UA) NEG (NEG) Urine Ketones NEG (NEG) Urine Occult Blood NEG (NEG) Urine Nitrite NEG (NEG) Urine Bilirubin NEG (NEG) Urine Urobilinogen NEG (NEG) Urine Leukocyte Esterase NEG (NEG) Bedside Glucose 73 mg/dl (70-99) Laboratory results reviewed by me Medications Administered Medications (Trade) Dose Ordered Sig/William Route Start Time Stop Time Status Last Admin Dose Admin Sodium Chloride 250 ml @ 999 mls/hr Q16M STAT IV 10/17/17 21:40 10/17/17 21:55 DC 10/17/17 21:55 999 MLS/HR Ciprofloxacin (Cipro Tab) 500 mg NOW STAT PO 10/18/17 00:22 10/18/17 00:24 DC 10/18/17 00:32 500 MG Metronidazole (Flagyl Tab) 500 mg NOW STAT PO 10/18/17 00:22 10/18/17 00:24 DC 10/18/17 00:31 500 MG ECG Per My Interpretation Indication: weakness Rate (beats per minute): 61 Rhythm: other (atrial paced) Findings: no acute ischemic change, no ectopy ED Course 2131: The patient was evaluated in room B3B. A complete history and physical exam was performed. Medical Decision I reviewed the patient's past medical history, medications, and the nursing notes as described above. Differential diagnosis: Etiologies such as appendicitis, diverticulitis, PUD, biliary pathology, UTI, pancreatitis, obstruction, mesenteric ischemia, aortic pathology, infections, inflammatory bowel disease, renal colic, as well as others were entertained. The patient is a 72-year-old gentleman with a past medical history of CHF with EF 35% status post AICD, prior afib on pradaxa, CKD, IDDM2 who presents emergency department with persistent diarrhea for the past 2 days per hpi. Of note the patient denies any recent antibiotic use or friends or family with similar symptoms. On arrival the patient is fatigued appearing but no acute distress, afebrile stable vital signs. Abdomen is nontender nondistended. CBC within normal limits. Chemistry with creatinine 1.7 at patient's baseline. C. difficile negative. Chest x-ray unremarkable. UA negative. CT abdomen pelvis per preliminary stat read review without acute findings and shows patient's diarrheal state. Given the patient's report of greater than 20 episodes of diarrhea daily for the past 2 days will treat empirically with Cipro and Flagyl. Risk/benefit of empiric antibiotics in the setting discussed with the patient including interactions with his medications, however we agreed to proceed with treatment at this time. Findings and plan for follow-up reviewed with patient. Patient agreeable and d/c'd per discharge instructions. Medication Reconcilliation Current Medication List: was personally reviewed by me Blood Pressure Screening Patient's blood pressure: Normal blood pressure Blood pressure disposition: Did not require urgent referral Impression Primary Impression: Diarrhea Scribe Attestation The scribe's documentation has been prepared under my direction and personally reviewed by me in its entirety. I confirm that the note above accurately reflects all work, treatment, procedures, and medical decision making performed by me. Departure Information Dispostion Home / Self-Care Prescriptions Ondasetron Odt (ZOFRAN ODT) 4 Mg Tab 4 MG SL Q6H for Nausea, #10 TAB Prov: Wei Mendoza M.D. 10/18/17 Saccharomyces Boulardii (Florastor) 250 Mg Cap 1 CAP PO BID for 10 Days, #20 CAP Prov: Wei Mendoza M.D. 10/18/17 Metronidazole (Flagyl) 500 Mg Tab 500 MG PO TID for 7 Days, #21 TAB Prov: Wei Mendoza M.D. 10/18/17 Ciprofloxacin HCl (Ciprofloxacin) 500 Mg Tab 1 TAB PO BID for 7 Days, #14 TABS Prov: Wei Mendoza M.D. 10/18/17 Referrals Giovany Pollack M.D. (PCP) Patient Instructions ED Diarrhea Bacterial, ED Diarrhea Viral, My [facility] Additional Instructions Please follow up with your primary care physician in the next 1-3 days for re- evaluation. You were evaluated for your diarrhea. Given your frequent episodes we will treat you empirically with antibiotics. Otherwise, your exam, EKG, chest xray, lab results, and CT scan did not show signs of an emergent condition at this time. Ciprofloxacin and Metronidazole as directed. Florastor, probiotic, to help prevent antibiotic associated diarrhea. Zofran as needed for nausea. Drink plenty of fluids to ensure hydration. Return to the emergency department for worsening symptoms as described in the accompanying instructions.
[2017-10-17] MEDS ORDERED: SODIUM CHLORIDE 0.9% 250ML 250 ML IV STA (21:40)
[2017-10-17 21:48] LABS: BASO % 0.5 %; BASO ABS # 0.05 K/uL (0-0.2); EOS % 6.1 %; EOS ABS # 0.64 K/uL (0-0.5); HEMATOCRIT 37.6 % (42-52); IG# 0.06 K/uL (0.00-0.02); LYMPH % 16.2 %; MEAN CELL VOLUME 80.2 fL (80-100); MEAN CORPUSCULAR HEMOGLOBIN 25.6 pg (25-34); MEAN CORPUSCULAR HGB CONC 31.9 g/dl (32-36); MEAN PLATELET VOLUME 11.1 fL (7.4-10.4); MONO % 10.6 %; MONO ABS # 1.11 K/uL (0.11-0.59); NEUT ABS # 6.92 K/uL (1.4-6.5); PLATELET COUNT 254 K/uL (130-400); RED CELL DISTRIBUTION WIDTH CV 19.6 % (11.5-14.5); RED CELL DISTRIBUTION WIDTH SD 44.6 fL (36.4-46.3); WHITE BLOOD COUNT 10.48 K/uL (4.8-10.8)
[2017-10-17 22:09] LABS: ALBUMIN 3.7 gm/dl (3.4-5.0); CALCIUM 7.8 mg/dl (8.5-10.1); CREATININE 1.71 mg/dl (0.60-1.40); PHOSPHORUS 2.6 mg/dl (2.5-4.9); POTASSIUM 3.5 mmol/L (3.5-5.1); TOTAL PROTEIN 6.9 gm/dl (6.4-8.2)
[2017-10-17] MEDS ORDERED: INSU3INJ3 INJ (22:10)
--- NOTE | 2017-10-17 23:32 | DIAGNOSTIC IMAGING REPORT ---
CHEST ONE VIEW PORTABLE HISTORY: Generalized abdominal pain. COMPARISON: Chest 02/10/2017. FINDINGS: Left-sided pacemaker/defibrillator is again noted. The heart remains mildly enlarged. No pleural effusions. No pneumothorax. No new focal lung consolidations to suggest pneumonia. No evidence for pulmonary edema. IMPRESSION: No significant change compared to the prior study. No acute process. Stable mild cardiomegaly. Electronically signed by: Zan Tuttle M.D. 10/17/2017 11:30 PM Dictated Date/Time: 10/17/2017 11:29 PM
[2017-10-18] MEDS ORDERED: CIPR-304 PO (00:18)
[2017-10-18] MEDS ORDERED: METR-163 PO (00:18)
[2017-10-18] MEDS ORDERED: SACC250C3 PO (00:18)
[2017-10-18] MEDS ORDERED: ONDA4TAB10 SL (00:21)
[2017-10-18] MEDS ORDERED: CIPROFLOXACIN 500 MG TAB PO STA (00:22)
[2017-10-18] MEDS ORDERED: METRONIDAZOLE 250 MG TAB PO STA (00:22)
[2017-10-18 00:34] VITALS: BP 111/72; PULSE 72; TEMP 36.5; O2SAT 99
--- NOTE | 2017-10-18 07:59 | DIAGNOSTIC IMAGING REPORT ---
CT OF THE ABDOMEN AND PELVIS WITHOUT CONTRAST CLINICAL HISTORY: Abdominal pain and diarrhea. COMPARISON STUDY: CT of the abdomen and pelvis April 11, 2013. TECHNIQUE: Axial images of the abdomen and pelvis were obtained without IV contrast. Images were reviewed in the axial, sagittal, and coronal planes. A dose lowering technique was utilized adhering to the principles of ALARA. FINDINGS: Pacer leads are partially imaged. Heart is moderately enlarged. Linear and groundglass lower lung opacities reflect atelectasis. There is no pneumatosis, free air or portal venous gas. Liver attenuation is increased. There is no biliary or pancreatic ductal dilatation. Small gallstones within the gallbladder are noted. There is no evidence for acute cholecystitis. The spleen, adrenal glands and pancreas are unremarkable. Colon is fluid-filled. No bowel wall thickening is identified on this unenhanced exam. The appendix is normal. Left femoral proximal internal fixation is noted. No lymphadenopathy is noted. There are no suspicious osseous lesions. Water attenuation right renal lesion favors a cyst. IMPRESSION: 1. Fluid-filled colon which suggests a diarrheal state. No bowel wall thickening identified on this unenhanced exam. No bowel obstruction. Normal appendix. 2. Cholelithiasis. No evidence for acute cholecystitis. 3. Increased attenuation of the liver which is nonspecific but can be seen in the setting of amiodarone therapy. Electronically signed by: Franco De León M.D. 10/18/2017 7:58 AM Dictated Date/Time: 10/18/2017 7:50 AM
== END 2017-10-18 00:51 | disposition home or self-care (01) ==
LOC: C.EDB 21:16
DX: R19.7 Diarrhea, unspecified (principal); I48.91 Unspecified atrial fibrillation; Z79.82 Long term (current) use of aspirin; I12.9 Hypertensive chronic kidney disease with stage 1 through stage 4 chronic kidney disease, or unspecified chronic kidney disease; Z79.01 Long term (current) use of anticoagulants; E11.22 Type 2 diabetes mellitus with diabetic chronic kidney disease; N18.2 Chronic kidney disease, stage 2 (mild); Z79.4 Long term (current) use of insulin; Z95.810 Presence of automatic (implantable) cardiac defibrillator; Z88.8 Allergy status to other drugs, medicaments and biological substances; Z88.1 Allergy status to other antibiotic agents; Z88.6 Allergy status to analgesic agent

== ENCOUNTER 2019-08-02 12:34 | Observation (INO) ==
[2019-08-02] MEDS ORDERED: NITROGLYCERIN 2% OINTMENT 30GM TUBE EXT STA (13:00)
--- NOTE | 2019-08-02 13:09 | Emergency Department Note ---
History of Present Illness General Chief complaint: Chest Pain Stated complaint: CHEST PAIN Time Seen by Provider: 08/02/19 12:49 Source: patient History of Present Illness Provider complaint: Chest pain Onset (ago): day(s) (Yesterday morning) Location: chest and left Radiation: non-radiation Severity: moderate Maximum Pain Intensity: 5 Quality: + other (Pressure) Relieved By: + other (Hand cream for half an hour) Exacerbated By: not by movement Associated symptoms: no cough, no diaphoresis, no fever/chills, no nausea/vomiting and no shortness of breath This is a 74-year-old male who presents with chest pain starting yesterday morning. He describes it as a pressure-like sensation over the left side of his chest. He rates it a 4 out of 5 in severity currently. He does not remember if it feels similar to his prior NM. He came in because he was concerned that his defibrillator might go off. He states that he has not had any discharge of his defibrillator. He states the pain is intermittent. It got better for half an hour when he rubbed hand cream on it. He does not know exactly what was in the hand cream. The pain is not affected by movement or palpation. It is not associated with shortness of breath or diaphoresis or lightheadedness. He denies fever, cough, abdominal pain, or any known exposure to COVID-19. He has no leg pain or swelling. He does state that he has some mild loose stools. He did take an aspirin this morning. He denies any use of erectile dysfunction drugs. Home Medications Home Medications Medication Instructions Recorded Confirmed Type dabigatran etexilate 150 mg capsule 150 mg PO BID PRN #180 cap 09/20/18 08/02/19 Rx pen needle, diabetic 31 gauge x #100 ea 10/01/18 01/16/19 Rx 5/16" aspirin 81 mg tablet 81 mg PO QAM tab 10/19/18 08/02/19 History calcium carbonate 600 mg calcium 600 mg PO QAM tab 10/19/18 08/02/19 History (1,500 mg) tablet cholecalciferol (vitamin D3) 25 1,000 units PO QAM 10/19/18 08/02/19 History mcg (1,000 unit) capsule magnesium oxide 400 mg (241.3 mg 400 mg PO BID tab 10/19/18 08/02/19 History magnesium) tablet lancets 33 gauge #100 ea 10/27/18 01/16/19 History blood sugar diagnostic #150 ea 01/07/19 01/16/19 Rx blood-glucose meter #1 ea 02/04/19 Rx famotidine 20 mg tablet 20 mg PO BID #180 tab 03/20/19 08/02/19 Rx carvedilol 25 mg tablet 25 mg PO BID #180 tab 03/21/19 08/02/19 Rx amiodarone 400 mg PO QAM 08/02/19 08/02/19 History finasteride [Proscar] 5 mg PO QAM 08/02/19 08/02/19 History furosemide 40 mg PO BID PRN 08/02/19 08/02/19 History insulin detemir U-100 [Levemir 50 units SUBCUT BID 08/02/19 08/02/19 History FlexTouch U-100 Insuln] isosorbide mononitrate 30 mg PO QAM 08/02/19 08/02/19 History levothyroxine [Synthroid] 88 mcg PO QAM 08/02/19 08/02/19 History lisinopril 10 mg PO QAM 08/02/19 08/02/19 History potassium chloride [Klor-Con M20] 20 meq PO QAM 08/02/19 08/02/19 History triamcinolone acetonide 1 appln TOPICAL BID PRN 08/02/19 08/02/19 History Allergies Allergy/AdvReac Type Severity Reaction Status Date / Time midazolam Allergy Intermediate "Made me Verified 08/02/19 13:24 go wild" adhesive Allergy Unknown RASH Verified 08/02/19 13:24 bacitracin Allergy Unknown RASH Verified 08/02/19 13:24 neomycin Allergy Unknown RASH Verified 08/02/19 13:24 polymyxin B Allergy Unknown RASH Verified 08/02/19 13:24 rosuvastatin Allergy Unknown RASH Verified 08/02/19 13:24 risperidone AdvReac Severe confusion, Verified 08/02/19 13:24 disorientation metformin AdvReac Mild DIARRHEA Verified 08/02/19 13:24 oxycodone AdvReac Unknown PT STATES Verified 08/02/19 13:24 THAT IT MAKES HIM MEAN OR ANGRY quetiapine AdvReac Unknown GETS Verified 08/02/19 13:24 COMBATIVE Past Med/Surg History Medical History ACS (acute coronary syndrome) (Acute 04/11/13) CAD (coronary artery disease) Chronic kidney disease, stage II (mild) (Chronic) Chronic systolic heart failure Closed fracture of manubrium Deep vein thrombosis, lower left extremity (Acute 2016) Fracture of proximal end of left tibia (Inactive 2014) NSTEMI (non-ST elevated myocardial infarction) (Acute 2014) Paroxysmal atrial fibrillation Paroxysmal ventricular tachycardia Rhabdomyolysis (2018) Surgical History History of implantable cardioverter-defibrillator (ICD) insertion History of inguinal hernia repair S/P ablation of ventricular arrhythmia Family History Mother Cancer Coronary heart disease Family/Other Cerebral arterial aneurysm Father Cerebral arterial aneurysm Stroke Other No significant family history Social History Preferred Language: Spanish Communication Ability: Effective Beliefs That Will Affect Care: None marital status: Current Living Situation: Spouse current occupational status: retired Feels Safe at Home: Yes Smoking Status: Never smoker Do You Dip or Chew Tobacco: No ; Hx Alcohol Use: Yes Alcohol type: beer Hx Substance Use: No Seatbelt Use: always Review of Systems See HPI for pertinent positives & negatives. and A total of 10 systems reviewed and were otherwise negative Physical Exam Vital Signs Vital Signs - 24 hr 08/02/19 12:46 08/02/19 12:53 08/02/19 13:13 Temperature 36.6 C Temperature Source Oral Pulse Rate 79 Pulse Rate [Apical] 63 Pulse Rhythm [Apical] Regular Pulse Strength [Apical] Normal Respiratory Rate 20 22 Respiratory Effort / Characteristics Non-Labored Spontaneous Non-Labored Spontaneous Respiratory Depth Normal Normal Respiratory Pattern Regular Blood Pressure 127/87 Blood Pressure [Right Arm] 119/71 Blood Pressure Mean 100 Blood Pressure Mean [Right Arm] 87 Blood Pressure Position [Right Arm] Sitting Pulse Oximetry 94 94 Oxygen Delivery Method Room Air Room Air Sepsis Recent Fever Within 48 Hours No Sepsis New/Unexplained Change in Mental Status No Sepsis Action Taken by Nursing No Action Required Constitutional: Vital signs reviewed. Eyes: Pupils are equal round reactive to light. Conjunctiva are noninjected. ENT: Pharynx is clear without erythema or exudate. Mucous membranes are moist. Neck supple without meningeal signs. Respiratory: Clear to auscultation bilaterally. Breath sounds are equal bilaterally. Cardiovascular: Regular rate and rhythm. No rubs or gallops. GI: Soft, nondistended and nontender. Bowel sounds are present. Musculoskeletal: No peripheral edema. No lower extremity tenderness. No tenderness or erythema to the left chest wall. Defibrillator is palpable. Integumentary: No cyanosis. or jaundice. Neurological: The patient is awake and alert. No focal deficits. Psychiatric: Normal affect. Not anxious appearing. Course Administered Medications Heparin Sodium/Dextrose (Heparin Sodium/Dextrose) 25,000 units in 500 mls @ 26 mls/hr IV .[id number] NAZARIO; Protocol Stop: 09/01/19 15:29 Last Titration: 08/02/19 19:12 Dose: 1,300 units/hr, 26 mls/hr Documented by: [id number] Cosigned by: [id number] Admin: 08/02/19 16:29 Dose: 1,300 units/hr, 26 mls/hr Documented by: [id number] Cosigned by: [id number] Insulin Aspart (Novolog Flexpen) 0 units SC ACHS [facility] Stop: 09/01/19 16:29 Last Admin: 08/02/19 17:24 Dose: Not Given Documented by: [id number] Discontinued Medications Fentanyl Citrate (Fentanyl Citrate) 50 mcg IV NOW STA Stop: 08/02/19 14:47 Last Admin: 08/02/19 14:52 Dose: 50 mcg Documented by: [id number] Heparin Sodium/Dextrose () 1 ea IV NOW STA; Protocol Stop: 08/02/19 15:24 Last Admin: 08/02/19 16:33 Dose: 1 ea Documented by: [id number] Heparin Sodium (Porcine) 6,000 (units/ Syringe) 6 mls @ 10 mls/min IV NOW ONE Stop: 08/02/19 16:31 Last Admin: 08/02/19 17:00 Dose: 10 mls/min Documented by: [id number] Cosigned by: [id number] Nitroglycerin (Nitro-Bid 2%) 1 inch EXT NOW STA Stop: 08/02/19 13:01 Last Admin: 08/02/19 13:15 Dose: 1 inch Documented by: [id number] Ondansetron HCl (Zofran) 4 mg IV NOW STA Stop: 08/02/19 14:47 Last Admin: 08/02/19 14:52 Dose: 4 mg Documented by: [id number] Critical Care Time Critical Care Time: Yes Total Critical Care Time: 35 I have personally spent approximately 35 minutes of critical care time in the di rect management of this patient. This includes bedside care, interpretation of diagnostic studies, and testing, discussion with consultants, patient, and family members, and other required patient management activities. These minutes are in excess of all separately billable procedures. Medical Decision Making Differential Diagnosis Unstable angina, NM, pleurisy, strain, pneumonia, pneumothorax Medical Records Attestation: I reviewed the patient's medical records. I did perform a limited focused review of portions of the patient's old chart on the electronic medical record. The patient has had no recent pertinent visits to this hospital. Home Medications Current Medication List: was personally reviewed by me Laboratory Data Attestation: I reviewed the patient's lab results. Result diagrams: 08/02/19 13:01 08/02/19 13:01 Lab Results 08/02/19 08/02/19 08/02/19 Range/Units 13:01 13:01 13:01 WBC 8.87 (4.8-10.8) K/uL RBC 4.83 (4.7-6.1) M/uL Hgb 13.6 L (14.0-18.0) g/dL Hct 40.6 L (42-52) % MCV 84.1 (80-100) fL MCH 28.2 (25-34) pg MCHC 33.5 (32-36) g/dL RDW Std Deviation 45.2 (36.4-46.3) fL RDW Coeff of Raymond 14.7 H (11.5-14.5) % Plt Count 212 (130-400) K/uL MPV 11.4 H (7.4-10.4) fL Immature Gran % (Auto) 0.3 % Neut % (Auto) 62.9 % Lymph % (Auto) 23.8 % [place] % (Auto) 8.5 % Eos % (Auto) 3.8 % Baso % (Auto) 0.7 % Immature Gran # (Auto) 0.03 H (0.00-0.02) K/uL Neut # (Auto) 5.58 (1.4-6.5) K/uL Lymph # (Auto) 2.11 (1.2-3.4) K/uL [place] # (Auto) 0.75 H (0.11-0.59) K/uL Eos # (Auto) 0.34 (0-0.5) K/uL Baso # (Auto) 0.06 (0-0.2) K/uL PT 13.2 H (9.0-12.0) Seconds INR 1.3 H (0.9-1.1) APTT 44.4 H (21.0-31.0) Seconds PTT Ratio 1.6 Sodium 136 (136-145) mmol/L Potassium 4.0 (3.5-5.1) mmol/L Chloride 99 (98-107) mmol/L Carbon Dioxide 26 (21-32) mmol/L Anion Gap 11.0 (3-11) BUN 17 (7-18) mg/dl Creatinine 1.50 H (0.6-1.4) mg/dl Est Cr Clr Drug Dosing 43.1 ml/min Est GFR ( Amer) 53.1 Est GFR (Non-Af Amer) 45.9 BUN/Creatinine Ratio 11.2 (10-20) Glucose 112 H (70-99) mg/dl Calcium 8.2 L (8.5-10.1) mg/dl Total Bilirubin 0.5 (0.2-1) mg/dl AST 82 H (15-37) U/L ALT 65 (12-78) U/L Alkaline Phosphatase 100 (45-117) U/L Troponin I 0.327 H* (0-0.045) ng/ml Total Protein 7.0 (6.4-8.2) gm/dl Albumin 3.7 (3.4-5.0) gm/dl Globulin 3.3 (2.5-4.0) gm/dl Albumin/Globulin Ratio 1.1 (0.9-2) Imaging Data Radiologist's Impression: XR chest 1V portable CLINICAL HISTORY: 74 years-old Male presenting with Chest Pain. TECHNIQUE: Portable upright AP view of the chest was obtained. COMPARISON: 10/17/2017. FINDINGS: Left subclavian implanted cardiac blood or with leads to the right atrium, right ventricular apex, and left ventricle via the coronary sinus. Several external leads project over the thorax. Atherosclerosis and mild prominence of the thoracic aorta. Cardiac silhouette also mildly enlarged. Mild pulmonary vascular prominence. No significant interstitial prominence. No focal opacity. No large effusion or pneumothorax. Osseous structures normal. Degenerative changes of the right glenohumeral joint. IMPRESSION: 1. Mild cardiomegaly and mild volume overload. No advanced congestive change or pulmonary edema. ACT 112: Negative or not required by law. Electronically signed by: Cheikh Tanner M.D. 08/02/2019 1:22 PM Dictated: 08/02/19 1317 Transcribed: 08/02/19 131 ECG Data Attestation: I personally reviewed and interpreted this ECG as follows: Indication: + chest pain Rate (beats per minute): 69 Rhythm: + other (Atrial paced rhythm) ECG Intervals/blocks: + Right Bundle branch block ECG ST segments: + ST depression (Anterior) ECG Findings: no PVCs Comparison ECG Date: from (January 04, 2019) Change: no significant change Additional Comments: Repeat twelve-lead EKG at 1446 for recurrent chest pain, per my interpretation, shows atrial paced rhythm at a rate of 61 bpm. There is a right bundle branch block with persistent slight ST depressions anteriorly not significantly changed from prior EKG. No PVCs are noted. MDM Narrative I did evaluate the patient as noted above. The patient is presenting with intermittent chest pain since yesterday. He describes it as a pressure. He is not sure if it feels like his prior cardiac events. IV access was established. I did place an order for continuous cardiac monitoring. The monitor showed a paced rhythm with a rate of 79. I did order and personally review the patient's 12-lead EKG as described above. The patient has a paced rhythm. He has some concordant ST depressions in the anterior leads. I did review his previous EKG from January 04, 2019 and this is unchanged. I did treat the patient with nitroglycerin paste. The patient does state that he took aspirin this morning. I did order and personally reviewed the images of the patient's chest x-ray as described above. Chest x-ray is unremarkable for any acute process. He does have mild cardiomegaly. I did order and review the patient's blood work as noted in the electronic medical record. Creatinine is 1.5 which is near his baseline. CBC is unremarkable other than some mild anemia. Electrolytes are unremarkable. Troponin is elevated at 0.3. I did reassess the patient he is feeling much better and has no chest discomfort at this time. I did discuss the test results with him and recommended hospitalization. I discussed the case and findings with Dr. Oneill of [facility] cardiology who recommended hospitalization and repeat cardiac biomarkers. He did not feel any acute intervention was necessary at this time as the patient is chest pain-free. I did not anticoagulate patient as he is already on Pradaxa. I did discuss the case with the hospitalist service as well as the nurse outreach case manager. Later I went to reassess the patient. He stated that the chest pain has come back slightly. He rates it a 1-2 out of 10 in severity. I did a repeat EKG which per my interpretation shows no significant change from the prior. I did treat him with IV fentanyl and Zofran. I did discuss this with the hospitalist. On reassessment the patient's is completely resolved. Impression & Plan NSTEMI (non-ST elevated myocardial infarction), Chronic kidney disease, stage II (mild), Anticoagulated Discharge Plan Visit Data *Final* Discharge Date/Time: 08/02/19 16:18 Chief Complaint: Chest Pain Stated Complaint: CHEST PAIN ED Provider: Tone Wilson Discharge Problem: NSTEMI (non-ST elevated myocardial infarction), Chronic kidney disease, stage II (mild), Anticoagulated Patient Disposition: Being Evaluated by Hospitalist Condition: Good Discharge Instructions Interventions: ED Discharge Assessment Last Done: 08/02/19 15:31
[2019-08-02 13:10] LABS: Basophils # (auto) 0.06 K/uL (0-0.2); Basophils % (auto) 0.7 %; Eosinophils # (auto) 0.34 K/uL (0-0.5); Eosinophils % (auto) 3.8 %; Hematocrit (blood only) 40.6 % (42-52); Hemoglobin 13.6 g/dL (14.0-18.0); Immature Granulocytes # (auto) 0.03 K/uL (0.00-0.02); Immature Granulocytes % (auto) 0.3 %; Lymphocytes # (auto) 2.11 K/uL (1.2-3.4); Lymphocytes % (auto) 23.8 %; Mean Corpuscular Hemoglobin 28.2 pg (25-34); Mean Corpuscular Hgb Conc 33.5 g/dL (32-36); Mean Corpuscular Volume 84.1 fL (80-100); Mean Platelet Volume 11.4 fL (7.4-10.4); Monocytes # (auto) 0.75 K/uL (0.11-0.59); Monocytes % (auto) 8.5 %; Neutrophils # (auto) 5.58 K/uL (1.4-6.5); Neutrophils % (auto) 62.9 %; Platelet Count 212 K/uL (130-400); RDW Coefficient of Variation 14.7 % (11.5-14.5); RDW Standard Deviation 45.2 fL (36.4-46.3); Red Blood Count 4.83 M/uL (4.7-6.1); White Blood Count 8.87 K/uL (4.8-10.8)
[2019-08-02 13:21] LABS: INR 1.3 (0.9-1.1); Partial Thromboplastin Ratio 1.6; Partial Thromboplastin Time 44.4 Seconds (21.0-31.0); Prothrombin Time 13.2 Seconds (9.0-12.0)
--- NOTE | 2019-08-02 13:23 | XRay Report ---
XR chest 1V portable CLINICAL HISTORY: 74 years-old Male presenting with Chest Pain. TECHNIQUE: Portable upright AP view of the chest was obtained. COMPARISON: 10/17/2017. FINDINGS: Left subclavian implanted cardiac blood or with leads to the right atrium, right ventricular apex, an d left ventricle via the coronary sinus. Several external leads project over the thorax. Atherosclero sis and mild prominence of the thoracic aorta. Cardiac silhouette also mildly enlarged. Mild pulmonar y vascular prominence. No significant interstitial prominence. No focal opacity. No large effusion or pneumothorax. Osseous structures normal. Degenerative changes of the right glenohumeral joint. IMPRESSION: 1. Mild cardiomegaly and mild volume overload. No advanced congestive change or pulmonary edema. ACT 112: Negative or not required by law. Electronically signed by: Cheikh Tanner M.D. 08/02/2019 1:22 PM
[2019-08-02 13:33] LABS: Albumin Level 3.7 gm/dl (3.4-5.0); BUN Creatinine Ratio 11.2 (10-20); Calcium 8.2 mg/dl (8.5-10.1); Creatinine Clr Calc Pharmacy 43.1 ml/min; Est GFR (African American) 53.1; Est GFR (Non-African American) 45.9
[2019-08-02 13:38] LABS: Albumin Globulin Ratio 1.1 (0.9-2); Bilirubin,Total 0.5 mg/dl (0.2-1); Globulin 3.3 gm/dl (2.5-4.0); Troponin I 0.327 ng/ml (0-0.045)
--- NOTE | 2019-08-02 14:42 | History & Physical Report ---
Date of Service August 02, 2019 Assessment & Plan (1) ACS (acute coronary syndrome): (2) NSTEMI (non-ST elevated myocardial infarction): - Admit to tele for NSTEMI - Trend cardiac biomarkers, initial set 0.327, monitor for peak - EKG reviewed with ST depression in inferior leads - Check 2 D echo - will hold Pradaxa, start on heparin drip now. - Continue cavedilol 25 mg BID, fuosemide 40 mg BID, isosorbide 30 mg daily, lisinopril 10 mg daily - Cardiology consulted - Follows with Dr. Fraga outpt - PT/OT consulted (3) Paroxysmal ventricular tachycardia: (4) S/P ablation of ventricular arrhythmia: -S/p ablation at [facility], electrophysiology with Dr. Denson as outpatient, no recent V. tach according to recent EP visit in March 2019. -Continue amiodarone, beta-blockade -Following LFTs and TSH as outpatient -Biventricular ICD in place (5) CAD (coronary artery disease): -History of such -Continue ASA, beta-gaby, MARCOS -Has not tolerated statin therapy -OM, D1 and D2 thought to be difficult for PCI therefore patient is on medical management. Also had mid RCA 60% and proximal LAD 50 to 60%. -NSTEMI as above -Cardiology consulted (6) Chronic systolic heart failure: -Does appears to be euvolemic on exam except for trace pitting edema in BLE -Checking 2D echo, continue Lasix 40 mg twice daily (7) Paroxysmal atrial fibrillation: -Currently paced on EKG -On Pradaxa, continue (8) Ischemic cardiomyopathy: Continue carvedilol and lisinopril -Consider Entresto as an outpatient, monitor 2D echo (9) Chronic kidney disease, stage II (mild): Creatinine is 1.5 on admission, appears to be baseline, follow with a.m. labs (10) Type 2 diabetes mellitus with chronic kidney disease: -ISS with Accu-Cheks AC at bedtime -Continue Levemir 50 units subcu BID -Checking A1c with a.m. labs (11) Hypothyroidism: -Continue levothyroxine 88 mcg daily (12) DVT prophylaxis: - teds, heparin gtt CODE: Full code Dispo: From home, likely to remain in the hospital x 1-2 days History of Present Illness Primary Care Provider: Giovany Pollack MD This is a 74-year-old male with past medical history of multivessel CAD, chronic systolic CHF, paroxysmal ventricular tachycardia status post ablation, cardiomyopathy, biventricular ICD in place, hypertension, HLD, paroxysmal A. fib on Pradaxa hypothyroidism, CKD stage III who presents with acute onset of substernal chest pain beginning last evening. Patient woke up at 8 AM today with significant pain radiating to his back and up into the neck. He denied any shortness of breath, nausea or numbness and tingling into his hands or fingers. Patient took all his morning medications and has been compliant with them. Once he arrived in the ER, Nitropaste was placed on the left arm and reports that his pain has been significantly alleviated. Currently rates it as a 2/10 compared to 5/10 when he arrived. Allergies Allergy/AdvReac Type Severity Reaction Status Date / Time midazolam Allergy Intermediate "Made me Verified 08/02/19 13:24 go wild" adhesive Allergy Unknown RASH Verified 08/02/19 13:24 bacitracin Allergy Unknown RASH Verified 08/02/19 13:24 neomycin Allergy Unknown RASH Verified 08/02/19 13:24 polymyxin B Allergy Unknown RASH Verified 08/02/19 13:24 rosuvastatin Allergy Unknown RASH Verified 08/02/19 13:24 risperidone AdvReac Severe confusion, Verified 08/02/19 13:24 disorientation metformin AdvReac Mild DIARRHEA Verified 08/02/19 13:24 oxycodone AdvReac Unknown PT STATES Verified 08/02/19 13:24 THAT IT MAKES HIM MEAN OR ANGRY quetiapine AdvReac Unknown GETS Verified 08/02/19 13:24 COMBATIVE Home Medications Home Medications Medication Instructions Recorded Confirmed Type dabigatran etexilate 150 mg capsule 150 mg PO BID PRN #180 cap 09/20/18 08/02/19 Rx pen needle, diabetic 31 gauge x #100 ea 10/01/18 01/16/19 Rx 5/16" aspirin 81 mg tablet 81 mg PO QAM tab 10/19/18 08/02/19 History calcium carbonate 600 mg calcium 600 mg PO QAM tab 10/19/18 08/02/19 History (1,500 mg) tablet cholecalciferol (vitamin D3) 25 1,000 units PO QAM 10/19/18 08/02/19 History mcg (1,000 unit) capsule magnesium oxide 400 mg (241.3 mg 400 mg PO BID tab 10/19/18 08/02/19 History magnesium) tablet lancets 33 gauge #100 ea 10/27/18 01/16/19 History blood sugar diagnostic #150 ea 01/07/19 01/16/19 Rx blood-glucose meter #1 ea 02/04/19 Rx famotidine 20 mg tablet 20 mg PO BID #180 tab 03/20/19 08/02/19 Rx carvedilol 25 mg tablet 25 mg PO BID #180 tab 03/21/19 08/02/19 Rx amiodarone 400 mg PO QAM 08/02/19 08/02/19 History finasteride [Proscar] 5 mg PO QAM 08/02/19 08/02/19 History furosemide 40 mg PO BID PRN 08/02/19 08/02/19 History insulin detemir U-100 [Levemir 50 units SUBCUT BID 08/02/19 08/02/19 History FlexTouch U-100 Insuln] isosorbide mononitrate 30 mg PO QAM 08/02/19 08/02/19 History levothyroxine [Synthroid] 88 mcg PO QAM 08/02/19 08/02/19 History lisinopril 10 mg PO QAM 08/02/19 08/02/19 History potassium chloride [Klor-Con M20] 20 meq PO QAM 08/02/19 08/02/19 History triamcinolone acetonide 1 appln TOPICAL BID PRN 08/02/19 08/02/19 History Past Med/Surg History Medical History ACS (acute coronary syndrome) (Acute 04/11/13) CAD (coronary artery disease) Chronic kidney disease, stage II (mild) (Chronic) Chronic systolic heart failure Closed fracture of manubrium Deep vein thrombosis, lower left extremity (Acute 2015) Fracture of proximal end of left tibia (Inactive 2014) NSTEMI (non-ST elevated myocardial infarction) (Acute 2014) Paroxysmal atrial fibrillation Paroxysmal ventricular tachycardia Rhabdomyolysis (2018) Surgical History History of implantable cardioverter-defibrillator (ICD) insertion History of inguinal hernia repair S/P ablation of ventricular arrhythmia Family History Mother Cancer Coronary heart disease Family/Other Cerebral arterial aneurysm Father Cerebral arterial aneurysm Stroke Other No significant family history Social History Preferred Language: Jamaican Communication Ability: Effective Beliefs That Will Affect Care: None marital status: Current Living Situation: Spouse current occupational status: retired Feels Safe at Home: Yes Smoking Status: Never smoker Do You Dip or Chew Tobacco: No ; Hx Alcohol Use: Yes Alcohol type: beer Hx Substance Use: No Seatbelt Use: always Review of Systems Review of Systems: Constitutional: No fever, chills, sweats, fatigue or weakness Eyes: No diplopia, no changes in vision ENT: No sore throat, tinnitus, or trouble swallowing Respiratory: No shortness of breath, No dyspnea at rest or on exertion, no cough or sputum Cardiovascular: As per HPI, no palpitations or flutter Abdomen: No pain, No constipation, No diarrhea, No nausea, No vomiting Musculoskeletal: No calf pain, No joint pain, No swelling Genitourinary : No dysuria or urinary frequency, No hematuria Neurologic: No numbness/tingling, no difficulty with ambulation, no sensory or motor deficits Psychiatric: No depression or anxiety symptoms Endocrine: No fatigue, No weight changes Integumentary: No itch, No rash Physical Exam Physical Exam: General: awake, alert, no apparent distress Head: Normocephalic, atraumatic ENT: PERRL, EOMI, no pharyngeal exudate, mucous membranes moist Chest: Clear to auscultation, no pain on palpation of the chest, on room air, no adventitious breath sounds Cardiac: Regular rate and rhythm, no murmur, no JVD, normal peripheral pulses, good capillary refill Abdominal: NABS x 4 quadrants, soft, nondistended nontender to palpation, no rebound, guarding or tenderness Extremities: Normal inspection, 1+ peripheral edema BLE and chronic venous stasis changes, no erythema, calfs nontender to palpation Psych: Normal mood and affect Neuro: AAO x 3, strength intact bilaterally and rated 5/5, no motor deficits, speech is clear, no peripheral sensory deficits Skin: no rash or erythema Results & Data Results & Data ([facility]) Vital Signs (Past 12 Hours) Vital Signs Temp Pulse Pulse Resp BP BP Pulse Ox 08/02/19 13:13 63 22 119/71 94 08/02/19 12:46 36.6 C 79 20 127/87 94 Diagnostic Findings XR chest 1V portable CLINICAL HISTORY: 74 years-old Male presenting with Chest Pain. TECHNIQUE: Portable upright AP view of the chest was obtained. COMPARISON: 10/17/2017. FINDINGS: Left subclavian implanted cardiac blood or with leads to the right atrium, right ventricular apex, and left ventricle via the coronary sinus. Several external leads project over the thorax. Atherosclerosis and mild prominence of the thorac ic aorta. Cardiac silhouette also mildly enlarged. Mild pulmonary vascular prominence. No significant interstitial prominence. No focal opacity. No large effusion or pneumothorax. Osseous structures normal. Degenerative changes of the right glenohumeral joint. IMPRESSION: 1. Mild cardiomegaly and mild volume overload. No advanced congestive change or pulmonary edema. ECG Additional Comments: 02-AUG-2019 12:53:17 [facility]-EDSTAT ROUTINE RETRIEVAL Poor data quality, interpretation may be adversely affected Atrial-paced rhythm with prolonged AV conduction Right bundle branch block Inferior infarct , age undetermined Abnormal ECG When compared with ECG of 04-JAN-2019 11:43, Borderline criteria for Lateral infarct are no longer Present T wave inversion no longer evident in Lateral leads 25mm/s 10mm/mV 150Hz 9.0.9 12SL 241 [place]: 16 Unconfirmed Vent. rate 69 BPM MO interval 288 ms QRS duration 166 ms QT/QTc 484/518 ms P-R-T axes * 267 61 Code Status & VTE Plan Code Status Full code-discussed with patient at bedside Supervising Physician Co-Signing Physician Notes Attending Attestation & Admission Note: Pt seen/examined, chart reviewed, care plan d/w NAKITA Garza. I agree w/ the cao components of her admission documentation except - elevated troponin may in fact NOT be NSTEMI. 74yo male - extensive cardiac history including known CAD, v-tach, chronic systolic CHF, VT ablation, AICD, T2DM, CKD stage 2-3, h/o DVT -- presenting with 12+ hours of fairly constant left upper chest wall pain - almost near his AICD device. Patient reports a fall at home a few days ago without any apparent injury. No syncope or head injury. He doesn't recall hitting his chest wall. With respect to chest wall pain it feels different than chest pains he experienced with prior cardiac events. He has no dyspnea, nausea, emesis or cough. Pain feels like it is on the outside as opposed to internally. PMH, PSH, allergies, meds, sochx, famhx - reviewed VSS, afebrile gen - NAD neck - no JVD heart - RRR, s1, s2 lungs - minimal rales bibasilar, no wheeze abd - soft NT no HSM ext - no edema, pulses 2+ b/l chest - no reproducible chest wall tenderness to palpation; AICD left upper chest labs - mildly elevated troponin of 0.3; Cr 1.5 chest x-ray reviewed EKG - atrial-paced rhythm with RBBB A/P: 1. chest wall pain, left upper chest with elevated troponin -- atypical for ischemic pain. Suspect musculoskeletal - perhaps related to recent fall? agree with Dr Oneill that his pain, given time course (12+ hours) etc - unlikely to be coronary-related will obtain rib x-rays on left to exclude rib fracture from recent fall will stop heparin drip since troponin is trending down and resume his pradaxa 2. chronic systolic CHF - appears compensated; has no pulmonary symptoms 3. h/o PAF and VT 4. T2DM 5. hypothyroidism - TSH scantly elevated in June; leave synthroid dose as is 6. CKD stage 3 - stable 7. AICD/pacemaker 8. CAD - cont usual cardiac meds observe overnight could potentially d/c tomorrow if feeling well Stephan Wood MD PG Care Time/CCT Total # of Minutes Spent Total Time Spent with Patient: Total time spent is greater than 50% in coordination of care (as documented) at patient's floor/unit and/or counseling patient: Coding Level of Care Code 48907 Initial Inpt Care Lvl 2 Diagnoses ACS (acute coronary syndrome) I24.9 NSTEMI (non-ST elevated myocardial infarction) I21.4 Paroxysmal ventricular tachycardia I47.2 S/P ablation of ventricular arrhythmia Z98.890; Z86.79 CAD (coronary artery disease) I25.10 Chronic systolic heart failure I50.22 Paroxysmal atrial fibrillation I48.0 Ischemic cardiomyopathy I25.5 Chronic kidney disease, stage II (mild) N18.2 Type 2 diabetes mellitus with chronic kidney disease E11.22 Hypothyroidism E03.9 DVT prophylaxis Z29.9
[2019-08-02] MEDS ORDERED: ONDANSETRON INJ 2 MG/ML 2 ML VIAL IV STA (14:46)
[2019-08-02] MEDS ORDERED: fentaNYL citrate 100 MCG/2 ML VIAL IV STA (14:46)
[2019-08-02] MEDS ORDERED: HEPARIN SODIUM/DEXTROSE 25,000 UNITS/500 ML BAG IV SCH ×2 (15:30→16:16)
[2019-08-02] MEDS ORDERED: ONDANSETRON INJ 2 MG/ML 2 ML VIAL IV PRN (16:16)
[2019-08-02] MEDS ORDERED: FUROSEMIDE 40 MG TAB PO PRN (16:16)
[2019-08-02] MEDS ORDERED: GLUCAGON FOR INJ 1 MG VIAL SQ PRN (16:16)
[2019-08-02] MEDS ORDERED: GLUCOSE 40% GEL 15 GM TUBE PO PRN (16:16)
[2019-08-02] MEDS ORDERED: TRIAMCINOLONE ACET 0.1% CR 15 GM TUBE TOP PRN (16:16)
[2019-08-02] MEDS ORDERED: DEXTROSE 50% 50 ML SYRINGE IV PRN (16:16)
[2019-08-02] MEDS ORDERED: GLUCOSE 10 TABS/TUBE PO PRN (16:16)
[2019-08-02] MEDS ORDERED: ACETAMINOPHEN 325 MG TAB PO PRN (16:16)
[2019-08-02] MEDS ORDERED: CARBOHYDRATES FOR HYPOGLYCEMIA PO PRN (16:16)
[2019-08-02] MEDS ORDERED: HEPARIN IV BOLUS 6,000 UNITS in SYRINGE 0 ML IV ONE (16:30)
[2019-08-02] MEDS: INSULIN ASPART 100 UNITS/ML 3 ML PEN SC SCH ×2 (17:24→21:25)
--- NOTE | 2019-08-02 17:36 | Cardiology Consultation ---
Date of Consultation August 02, 2019 Assessment & Plan (1) Chest pain: His chest pain is very atypical for an acute coronary syndrome. The pain itself is very well localized to a discrete area in his left upper chest close to his device implant. I do not believe it is related to the device. I cannot feel any impending dehiscence at that site. It is nontender to palpation. There is no rash. There is no erythema or signs of infection regarding the device itself. He seems to find relief with a skin cream. He was seem reasonable this point to provide symptomatic relief with additional topical agents. I do not believe this represents an acute coronary syndrome. The duration of his symptoms would likely have resulted in the significantly elevated biomarkers if this was truly ischemia. Looking through his records he always has a very mild elevation in troponin which is likely chronic for this individual. I think it is next biomarker is of similar elevation we can discontinue his heparin and simply continue him on his outpatient anticoagulation. (2) Paroxysmal atrial fibrillation: No recent episodes of atrial fibrillation. Continue on amiodarone and Pradaxa (3) Paroxysmal ventricular tachycardia: He did have 1 episode of ventricular tachycardia treated with ATP. He has undergone ablation I believe a more than 1 occasion for ventricular tachycardia. He has also had multiple therapies over the years. Currently on amiodarone. He can continue his current dose of amiodarone and carvedilol. (4) CAD (coronary artery disease): He is not generally have symptoms of angina. He had branch vessel disease in the past. Again, do not believe his current symptoms are related to coronary insufficiency or angina. I think he can continue on his outpatient medical regimen which includes a daily aspirin, Pradaxa, isosorbide and carvedilol. (5) Chronic systolic heart failure: He appears well compensated on exam. His device interrogation did not demonstrate any reduced thoracic impedance suggestive of pulmonary edema. He has not report symptoms consistent with pulmonary edema or volume overload. At the continue on his current outpatient regimen which includes carvedilol, lisinopril and Lasix. (6) NSTEMI (non-ST elevated myocardial infarction): He appears to have a chronic elevation in his troponin. His current value was actually less than that seen during prior hospitalizations. I think if the next troponin is any similar range we can discontinue serial testing and stop treatment for NSTEMI or acute coronary syndrome. History of Present Illness Reason for Consultation: Chest pain Requesting Physician: Nina Attending Physician: Stephan Wood History of Present Illness The patient is a 74-year-old gentleman with a history of coronary artery disease, cardiomyopathy, paroxysmal atrial fibrillation and ventricular t achycardia status post implantation of an ICD who presented to the emergency room over concerns of chest discomfort. The patient states that sometime yesterday he began to experience some discomfort in the proximity of his ICD. This discomfort was fairly localized to that site. He was not tender to palpation. It did not radiate to the arm or the jaw. It did not involve any precordial pain. The not seem to be any pleuritic component. He was not worsened with movement of the left arm. This symptom was fairly mild at 1st and appear to be relieved by application of a skin lotion. The skin motion would leave via the symptoms for period of time but then the return. Patient stated that the symptoms became slightly more noticeable and he was concerned about a firing of his defibrillator. The patient has had defibrillator firings in the past. Based on this concerning presented for an evaluation. He was discovered to have elevated cardiac biomarkers and admitted for observation. At the time my interview the patient claims to be feeling well. He cannot recall any other times where he had similar discomfort. Into yesterday he was actually feeling quite well. He claims to be active with ambulation and routine housework. He has not report limiting symptoms associated with that activity. He did not report breathing difficulty recently. No orthopnea. No swelling in his lower extremities other than baseline edema. He measures his weight regularly and has not noticed any significant changes. He has not noticed any palpitations. He has not had any dizziness or lightheadedness. He has not suffered syncope. No firing from his device. Allergies Allergy/AdvReac Type Severity Reaction Status Date / Time midazolam Allergy Intermediate "Made me Verified 08/02/19 13:24 go wild" adhesive Allergy Unknown RASH Verified 08/02/19 13:24 bacitracin Allergy Unknown RASH Verified 08/02/19 13:24 neomycin Allergy Unknown RASH Verified 08/02/19 13:24 polymyxin B Allergy Unknown RASH Verified 08/02/19 13:24 rosuvastatin Allergy Unknown RASH Verified 08/02/19 13:24 risperidone AdvReac Severe confusion, Verified 08/02/19 13:24 disorientation metformin AdvReac Mild DIARRHEA Verified 08/02/19 13:24 oxycodone AdvReac Unknown PT STATES Verified 08/02/19 13:24 THAT IT MAKES HIM MEAN OR ANGRY quetiapine AdvReac Unknown GETS Verified 08/02/19 13:24 COMBATIVE Home Medications Home Medications Medication Instructions Recorded Confirmed Type dabigatran etexilate 150 mg capsule 150 mg PO BID PRN #180 cap 09/20/18 08/02/19 Rx pen needle, diabetic 31 gauge x #100 ea 10/01/18 01/16/19 Rx 07/26" aspirin 81 mg tablet 81 mg PO QAM tab 10/19/18 08/02/19 History calcium carbonate 600 mg calcium 600 mg PO QAM tab 10/19/18 08/02/19 History (1,500 mg) tablet cholecalciferol (vitamin D3) 25 1,000 units PO QAM 10/19/18 08/02/19 History mcg (1,000 unit) capsule magnesium oxide 400 mg (241.3 mg 400 mg PO BID tab 10/19/18 08/02/19 History magnesium) tablet lancets 33 gauge #100 ea 10/27/18 01/16/19 History blood sugar diagnostic #150 ea 01/07/19 01/16/19 Rx blood-glucose meter #1 ea 02/04/19 Rx famotidine 20 mg tablet 20 mg PO BID #180 tab 03/20/19 08/02/19 Rx carvedilol 25 mg tablet 25 mg PO BID #180 tab 03/21/19 08/02/19 Rx amiodarone 400 mg PO QAM 08/02/19 08/02/19 History finasteride [Proscar] 5 mg PO QAM 08/02/19 08/02/19 History furosemide 40 mg PO BID PRN 08/02/19 08/02/19 History insulin detemir U-100 [Levemir 50 units SUBCUT BID 08/02/19 08/02/19 History FlexTouch U-100 Insuln] isosorbide mononitrate 30 mg PO QAM 08/02/19 08/02/19 History levothyroxine [Synthroid] 88 mcg PO QAM 08/02/19 08/02/19 History lisinopril 10 mg PO QAM 08/02/19 08/02/19 History potassium chloride [Klor-Con M20] 20 meq PO QAM 08/02/19 08/02/19 History triamcinolone acetonide 1 appln TOPICAL BID PRN 08/02/19 08/02/19 History Patient History Medical History ACS (acute coronary syndrome) (Acute 04/11/13) CAD (coronary artery disease) Chronic kidney disease, stage II (mild) (Chronic) Chronic systolic heart failure Closed fracture of manubrium Deep vein thrombosis, lower left extremity (Acute 2015) Fracture of proximal end of left tibia (Inactive 2014) NSTEMI (non-ST elevated myocardial infarction) (Acute 2014) Paroxysmal atrial fibrillation Paroxysmal ventricular tachycardia Rhabdomyolysis (2018) Surgical History History of implantable cardioverter-defibrillator (ICD) insertion History of inguinal hernia repair S/P ablation of ventricular arrhythmia Family History Mother Cancer Coronary heart disease Family/Other Cerebral arterial aneurysm Father Cerebral arterial aneurysm Stroke Other No significant family history Social History Preferred Language: Czech Communication Ability: Effective Beliefs That Will Affect Care: None marital status: Current Living Situation: Spouse current occupational status: retired Feels Safe at Home: Yes Smoking Status: Never smoker Do You Dip or Chew Tobacco: No ; Hx Alcohol Use: Yes Alcohol type: beer Hx Substance Use: No Seatbelt Use: always Review of Systems Review of Systems: All systems reviewed & are unremarkable except as noted in HPI & below No recent fevers or chills. Physical Exam Physical Exam: The patient is alert and oriented. Mood and affect appeared normal. He answered all questions appropriately. HEENT: Pupils are equal and reactive to light and accommodation. Extraocular movements are intact. The sclerae are anicteric. Neuro: Cranial nerves intact Neck: Patient's neck is supple. He has palpable carotid pulses bilaterally without bruits on auscultation. There is no evidence of jugular venous distention. The thyroid is not enlarged. Lungs: Clear to auscultation bilaterally. He has good air movement without use of accessory muscles. No rales wheezes or rhonchi. Cardiac: Heart demonstrates a regular rate and rhythm. Normal S1 and S2. No murmurs on examination. Chest: Evaluation of the ICD implant site in the left upper pectoral area did not reveal any erythema. He is nontender to palpation at that site. Pulses: The patient has palpable radial pulses bilaterally that are equal in intensity Extremities: There was no evidence of hypoperfusion. There is no cyanosis or clubbing. There is mild lower extremity edema Skin: I did not appreciate any rashes on examination today. He does have chronic trophic changes on both lower extremities. Results & Data ([facility]) Vital Signs (Past 12 Hours) Vital Signs Temp Pulse Pulse Resp BP BP Pulse Ox 08/02/19 16:34 36.5 C 64 19 135/78 96 08/02/19 15:25 96 08/02/19 14:53 63 18 131/82 96 08/02/19 13:13 63 22 119/71 94 08/02/19 12:46 36.6 C 79 20 127/87 94 Laboratory Results Abnormal Lab Results 08/02/19 08/02/19 08/02/19 13:01 13:01 13:01 WBC 8.87 RBC 4.83 Hgb 13.6 L Hct 40.6 L MCV 84.1 MCH 28.2 MCHC 33.5 RDW Std Deviation 45.2 RDW Coeff of Raymond 14.7 H Plt Count 212 MPV 11.4 H Immature Gran % (Auto) 0.3 Neut % (Auto) 62.9 Lymph % (Auto) 23.8 [place] % (Auto) 8.5 Eos % (Auto) 3.8 Baso % (Auto) 0.7 Immature Gran # (Auto) 0.03 H Neut # (Auto) 5.58 Lymph # (Auto) 2.11 [place] # (Auto) 0.75 H Eos # (Auto) 0.34 Baso # (Auto) 0.06 PT 13.2 H INR 1.3 H APTT 44.4 H PTT Ratio 1.6 Sodium 136 Potassium 4.0 Chloride 99 Carbon Dioxide 26 Anion Gap 11.0 BUN 17 Creatinine 1.50 H Est Cr Clr Drug Dosing 43.1 Est GFR ( Amer) 53.1 Est GFR (Non-Af Amer) 45.9 BUN/Creatinine Ratio 11.2 Glucose 112 H POC Glucose Calcium 8.2 L Total Bilirubin 0.5 AST 82 H ALT 65 Alkaline Phosphatase 100 Troponin I 0.327 H* Total Protein 7.0 Albumin 3.7 Globulin 3.3 Albumin/Globulin Ratio 1.1 08/02/19 16:30 WBC RBC Hgb Hct MCV MCH MCHC RDW Std Deviation RDW Coeff of Raymond Plt Count MPV Immature Gran % (Auto) Neut % (Auto) Lymph % (Auto) [place] % (Auto) Eos % (Auto) Baso % (Auto) Immature Gran # (Auto) Neut # (Auto) Lymph # (Auto) [place] # (Auto) Eos # (Auto) Baso # (Auto) PT INR APTT PTT Ratio Sodium Potassium Chloride Carbon Dioxide Anion Gap BUN Creatinine Est Cr Clr Drug Dosing Est GFR ( Amer) Est GFR (Non-Af Amer) BUN/Creatinine Ratio Glucose POC Glucose 90 Calcium Total Bilirubin AST ALT Alkaline Phosphatase Troponin I Total Protein Albumin Globulin Albumin/Globulin Ratio Diagnostic Findings Chest x-ray obtained at the time of admission which did not reveal any acute cardiopulmonary findings I performed a complete device interrogation of his biventricular ICD. He did have 1 episode of ventricular tachycardia on July 25 which were successfully treated with ATP. No cardioversion required. He had 1 other nonsustained episode of VT on the same day. Otherwise no arrhythmias since May. ECG Additional Comments: EKG the time admission revealed atrial pacing with right bundle branch block PG Care Time/CCT Total # of Minutes Spent Total Time Spent with Patient: Total time spent is greater than 50% in coordination of care (as documented) at patient's floor/unit and/or counseling patient: Coding Level of Care Code 40257 Initial Inpt Care Lvl 3 Diagnoses Chest pain R07.9 Paroxysmal atrial fibrillation I48.0 Paroxysmal ventricular tachycardia I47.2 CAD (coronary artery disease) I25.10 Chronic systolic heart failure I50.22 NSTEMI (non-ST elevated myocardial infarction) I21.4 CPT Codes Implantable Defib Multi lead programming - 16485 ([id number]) 26 - PROFESSIONAL COMPONENT
--- NOTE | 2019-08-02 19:49 | Electrocardiogram Report ---
Test Reason : Blood Pressure : / mmHG Vent. Rate : 069 BPM Atrial Rate : 069 BPM P-R Int : 288 ms QRS Dur : 166 ms QT Int : 484 ms P-R-T Axes : 000 267 061 degrees QTc Int : 518 ms Poor data quality, interpretation may be adversely affected Atrial-paced rhythm with prolonged AV conduction PACs Right bundle branch block Inferior infarct , age undetermined Abnormal ECG When compared with ECG of 04-JAN-2019 11:43, Borderline criteria for Lateral infarct are no longer Present T wave inversion no longer evident in Lateral leads Confirmed by Paxton Oneill ([id number]) on 08/02/2019 7:48:39 PM Referred By: SEF Confirmed By:Faraz Oneill
--- NOTE | 2019-08-02 19:50 | Electrocardiogram Report ---
Test Reason : Blood Pressure : / mmHG Vent. Rate : 061 BPM Atrial Rate : 061 BPM P-R Int : 278 ms QRS Dur : 164 ms QT Int : 518 ms P-R-T Axes : 000 260 048 degrees QTc Int : 521 ms Atrial-paced rhythm with prolonged AV conduction with occasional Premature ventricular complexes Right bundle branch block Inferior infarct (cited on or before 06-NOV-2017) Abnormal ECG When compared with ECG of 02-AUG-2019 12:53, (unconfirmed) Premature ventricular complexes are now Present Confirmed by Paxton Oneill ([id number]) on 08/02/2019 7:50:00 PM Referred By: REFERRED SELF Confirmed By:Faraz Oneill
[2019-08-02] MEDS: INSULIN DETEMIR FLEXPEN/FLEX TOUCH 100 UNITS/ML 3ML SQ SCH (21:23)
[2019-08-02] MEDS: carvediloL 25 MG TAB PO SCH (21:23)
[2019-08-02] MEDS: MAGNESIUM OXIDE 400 MG TAB PO SCH (21:23)
[2019-08-02] MEDS: FAMOTIDINE 20 MG TAB PO SCH (21:26)
[2019-08-02] MEDS: DABIGATRAN ETEXILATE 75 MG CAP PO SCH (21:33)
--- NOTE | 2019-08-02 21:46 | XRay Report ---
LEFT-SIDED RIB SERIES CLINICAL HISTORY: Left chest wall pain. FINDINGS: 5 views from a left-sided rib series are correlated with chest x-ray performed the same day 08/02/2019. A 3-lead cardiac pacer is again noted. The heart is enlarged. The left lung parenchyma is clear as imaged. The skeletal structures are osteopenic. There is no radiographic evidence of acute/ distracted left-sided rib fracture. IMPRESSION: There is no radiographic evidence of acute/distracted left-sided rib fracture. Electronically signed by: Juan Pablo Castañeda M.D. 08/02/2019 9:45 PM
[2019-08-03 03:14] LABS: Calcium 7.8 mg/dl (8.5-10.1); Creatinine Clr Calc Pharmacy 41.7 ml/min; Est GFR (African American) 51.1; Est GFR (Non-African American) 44.1; Potassium 3.9 mmol/L (3.5-5.1)
[2019-08-03 03:15] LABS: Hematocrit (blood only) 38.2 % (42-52); Hemoglobin 12.6 g/dL (14.0-18.0); Mean Corpuscular Hemoglobin 29.9 pg (25-34); Mean Corpuscular Volume 90.7 fL (80-100); Platelet Count 175 K/uL (130-400); RDW Coefficient of Variation 17.6 % (11.5-14.5); RDW Standard Deviation 45.1 fL (36.4-46.3); Red Blood Count 4.21 M/uL (4.7-6.1); White Blood Count 7.13 K/uL (4.8-10.8)
[2019-08-03 03:37] LABS: Bilirubin,Total 0.7 mg/dl (0.2-1); Globulin 3.1 gm/dl (2.5-4.0); Total Protein 6.1 gm/dl (6.4-8.2); Troponin I 0.28 ng/ml (0-0.045)
[2019-08-03 06:09] LABS: Estimated Average Glucose 148 mg/dl; Hemoglobin A1C 6.8 % (4.5-5.6)
[2019-08-03] MEDS ORDERED: LEVOTHYROXINE SODIUM 88 MCG TABLET PO SCH (06:30)
[2019-08-03 07:36] VITALS: BP 117/74; TEMP 98.1; O2SAT 91
[2019-08-03] MEDS: FAMOTIDINE 20 MG TAB PO SCH (08:15)
[2019-08-03] MEDS: DABIGATRAN ETEXILATE 75 MG CAP PO SCH (08:16)
[2019-08-03] MEDS: MAGNESIUM OXIDE 400 MG TAB PO SCH (08:16)
[2019-08-03] MEDS: carvediloL 25 MG TAB PO SCH (08:16)
[2019-08-03] MEDS: INSULIN DETEMIR FLEXPEN/FLEX TOUCH 100 UNITS/ML 3ML SQ SCH (08:17)
[2019-08-03] MEDS: INSULIN ASPART 100 UNITS/ML 3 ML PEN SC SCH (08:19)
--- NOTE | 2019-08-03 08:26 | Cardiology Progress Note ---
Date of Service August 03, 2019 Assessment & Plan (1) Chest pain: I would characterize his presenting symptoms as non-cardiac. He is feeling well. He has a chronic elevation in Troponin. I think he can be safely discharged without any alteration in his medical therapy (2) Paroxysmal atrial fibrillation: No recent episodes of atrial fibrillation. Continue on amiodarone and Pradaxa (3) Paroxysmal ventricular tachycardia: He did have 1 episode of ventricular tachycardia treated with ATP. He has undergone ablation I believe a more than 1 occasion for ventricular tachycardia. He has also had multiple therapies over the years. Currently on amiodarone. He can continue his current dose of amiodarone and carvedilol. (4) CAD (coronary artery disease): He is not generally have symptoms of angina. He had branch vessel disease in the past. Again, do not believe his current symptoms are related to coronary insufficiency or angina. I think he can continue on his outpatient medical regimen which includes a daily aspirin, Pradaxa, isosorbide and carvedilol. (5) Chronic systolic heart failure: He appears well compensated on exam. His device interrogation did not demonstrate any reduced thoracic impedance suggestive of pulmonary edema. He has not report symptoms consistent with pulmonary edema or volume overload. At the continue on his current outpatient regimen which includes carvedilol, lisinopril and Lasix. (6) NSTEMI (non-ST elevated myocardial infarction): He appears to have a chronic elevation in his troponin. His level ia actually lower than in the past. His presentation and biomarker elevation is NOT consistent with an ACS. I don't think he requires any additional evaluation for ischemia. Admission and Anticipated Discharge Date Admission Date: August 02, 2019 Subjective This morning the patient is feeling well. H ehas not had recurrent symptoms. Anxious for d/c Review of Systems Review of Systems: per HPI Physical Exam Physical Exam: The patient is alert and oriented. Mood and affect appeared normal. He answered all questions appropriately. HEENT: Pupils are equal and reactive to light and accommodation. Extraocular movements are intact. The sclerae are anicteric. Neuro: Cranial nerves intact Lungs: Clear to auscultation bilaterally. He has good air movement without use of accessory muscles. No rales wheezes or rhonchi. Extremities: There was no evidence of hypoperfusion. There is no cyanosis or clubbing. There is mild lower extremity edema Skin: I did not appreciate any rashes on examination today. He does have chr onic trophic changes on both lower extremities. Results & Data ([facility]) Vital Signs (Past 12 Hours) Vital Signs Temp Pulse Resp BP Pulse Ox 08/03/19 07:35 36.7 C 68 20 117/74 91 08/03/19 03:37 36.5 C 83 18 125/79 94 08/02/19 23:53 36.5 C 69 17 97/57 L 92 Laboratory Results Abnormal Lab Results 08/02/19 08/02/19 08/02/19 13:01 13:01 13:01 WBC 8.87 RBC 4.83 Hgb 13.6 L Hct 40.6 L MCV 84.1 MCH 28.2 MCHC 33.5 RDW Std Deviation 45.2 RDW Coeff of Raymond 14.7 H Plt Count 212 MPV 11.4 H Immature Gran % (Auto) 0.3 Neut % (Auto) 62.9 Lymph % (Auto) 23.8 [place] % (Auto) 8.5 Eos % (Auto) 3.8 Baso % (Auto) 0.7 Immature Gran # (Auto) 0.03 H Neut # (Auto) 5.58 Lymph # (Auto) 2.11 [place] # (Auto) 0.75 H Eos # (Auto) 0.34 Baso # (Auto) 0.06 PT 13.2 H INR 1.3 H APTT 44.4 H PTT Ratio 1.6 Sodium 136 Potassium 4.0 Chloride 99 Carbon Dioxide 26 Anion Gap 11.0 BUN 17 Creatinine 1.50 H Est Cr Clr Drug Dosing 43.1 Est GFR ( Amer) 53.1 Est GFR (Non-Af Amer) 45.9 BUN/Creatinine Ratio 11.2 Glucose 112 H POC Glucose Estimat Average Glucose Hemoglobin A1c Calcium 8.2 L Total Bilirubin 0.5 AST 82 H ALT 65 Alkaline Phosphatase 100 Troponin I 0.327 H* Total Protein 7.0 Albumin 3.7 Globulin 3.3 Albumin/Globulin Ratio 1.1 Triglycerides Cholesterol LDL Cholesterol, Calc VLDL Cholesterol, Calc HDL Cholesterol Cholesterol/HDL Ratio 08/02/19 08/02/19 08/02/19 16:30 18:54 20:27 WBC RBC Hgb Hct MCV MCH MCHC RDW Std Deviation RDW Coeff of Raymond Plt Count MPV Immature Gran % (Auto) Neut % (Auto) Lymph % (Auto) [place] % (Auto) Eos % (Auto) Baso % (Auto) Immature Gran # (Auto) Neut # (Auto) Lymph # (Auto) [place] # (Auto) Eos # (Auto) Baso # (Auto) PT INR APTT PTT Ratio Sodium Potassium Chloride Carbon Dioxide Anion Gap BUN Creatinine Est Cr Clr Drug Dosing Est GFR ( Amer) Est GFR (Non-Af Amer) BUN/Creatinine Ratio Glucose POC Glucose 90 156 H Estimat Average Glucose Hemoglobin A1c Calcium Total Bilirubin AST ALT Alkaline Phosphatase Troponin I 0.297 H* Total Protein Albumin Globulin Albumin/Globulin Ratio Triglycerides Cholesterol LDL Cholesterol, Calc VLDL Cholesterol, Calc HDL Cholesterol Cholesterol/HDL Ratio 08/03/19 08/03/19 08/03/19 02:42 02:42 02:42 WBC 7.13 RBC 4.21 L Hgb 12.6 L Hct 38.2 L MCV 90.7 D MCH 29.9 MCHC 33.0 RDW Std Deviation 45.1 RDW Coeff of Raymond 17.6 H Plt Count 175 MPV 11.0 H Immature Gran % (Auto) Neut % (Auto) Lymph % (Auto) [place] % (Auto) Eos % (Auto) Baso % (Auto) Immature Gran # (Auto) Neut # (Auto) Lymph # (Auto) [place] # (Auto) Eos # (Auto) Baso # (Auto) PT INR APTT PTT Ratio Sodium 138 Potassium 3.9 Chloride 102 Carbon Dioxide 29 Anion Gap 7.0 BUN 14 Creatinine 1.55 H Est Cr Clr Drug Dosing 41.7 Est GFR ( Amer) 51.1 Est GFR (Non-Af Amer) 44.1 BUN/Creatinine Ratio 9.0 L Glucose 90 POC Glucose Estimat Average Glucose 148 Hemoglobin A1c 6.8 H Calcium 7.8 L Total Bilirubin 0.7 AST 67 H ALT 54 Alkaline Phosphatase 83 Troponin I 0.280 H* Total Protein 6.1 L Albumin 3.0 L Globulin 3.1 Albumin/Globulin Ratio 1.0 Triglycerides 217 H Cholesterol 120 LDL Cholesterol, Calc 46 VLDL Cholesterol, Calc 43 HDL Cholesterol 31 Cholesterol/HDL Ratio 4 08/03/19 08/03/19 05:25 06:52 WBC RBC Hgb Hct MCV MCH MCHC RDW Std Deviation RDW Coeff of Raymond Plt Count MPV Immature Gran % (Auto) Neut % (Auto) Lymph % (Auto) [place] % (Auto) Eos % (Auto) Baso % (Auto) Immature Gran # (Auto) Neut # (Auto) Lymph # (Auto) [place] # (Auto) Eos # (Auto) Baso # (Auto) PT INR APTT PTT Ratio Sodium Potassium Chloride Carbon Dioxide Anion Gap BUN Creatinine Est Cr Clr Drug Dosing Est GFR ( Amer) Est GFR (Non-Af Amer) BUN/Creatinine Ratio Glucose POC Glucose 94 120 H Estimat Average Glucose Hemoglobin A1c Calcium Total Bilirubin AST ALT Alkaline Phosphatase Troponin I Total Protein Albumin Globulin Albumin/Globulin Ratio Triglycerides Cholesterol LDL Cholesterol, Calc VLDL Cholesterol, Calc HDL Cholesterol Cholesterol/HDL Ratio PG Care Time/CCT Total # of Minutes Spent Total Time Spent with Patient: Total time spent is greater than 50% in coordinat ion of care (as documented) at patient's floor/unit and/or counseling patient: Coding Level of Care Code 60145 Subseq Hosp Care Lvl 2 Diagnoses Chest pain R07.9 Paroxysmal atrial fibrillation I48.0 Paroxysmal ventricular tachycardia I47.2 CAD (coronary artery disease) I25.10 Chronic systolic heart failure I50.22 NSTEMI (non-ST elevated myocardial infarction) I21.4
--- NOTE | 2019-08-03 08:58 | Discharge Summary ---
Date of Service August 03, 2019 Admission HPI Per Admitting Provider This is a 74-year-old male with past medical history of multivessel CAD, chronic systolic CHF, paroxysmal ventricular tachycardia status post ablation, cardiomyopathy, biventricular ICD in place, hypertension, HLD, paroxysmal A. fib on Pradaxa hypothyroidism, CKD stage III who presents with acute onset of substernal chest pain beginning last evening. Patient woke up at 8 AM today with significant pain radiating to his back and up into the neck. He denied any shortness of breath, nausea or numbness and tingling into his hands or fingers. Patient took all his morning medications and has been compliant with them. Once he arrived in the ER, Nitropaste was placed on the left arm and reports that his pain has been significantly alleviated. Currently rates it as a 2/10 compared to 5/10 when he arrived. Discharge Data Consultations 08/02/19 14:35 ED Decision to Admit Stat 08/02/19 16:16 Consult Cardiology Routine Consult Case Management - Discharge Planning Routine
[2019-08-03] MEDS ORDERED: POTASSIUM CHLORIDE 20 MEQ TABCR PO SCH (09:00)
[2019-08-03] MEDS ORDERED: FINASTERIDE 5 MG TAB PO SCH (09:00)
[2019-08-03] MEDS ORDERED: ASPIRIN 81 MG CHEW PO SCH (09:00)
[2019-08-03] MEDS ORDERED: CALCIUM CARBONATE 1250MG TAB PO SCH (09:00)
[2019-08-03] MEDS ORDERED: AMIODARONE 200 MG TAB PO SCH (09:00)
[2019-08-03] MEDS ORDERED: lisinopriL 10 MG TAB PO SCH (09:00)
[2019-08-03] MEDS ORDERED: CHOLECALCIFEROL 1,000 UNITS 25 MCG TAB PO SCH (09:00)
[2019-08-03] MEDS ORDERED: ISOSORBIDE MONO EXTENDED REL 30 MG TABCR PO SCH (09:00)
--- NOTE | 2019-08-03 09:09 | Discharge Summary ---
Date of Service August 03, 2019 Admission HPI Per Admitting Provider This is a 74-year-old male with past medical history of multivessel CAD, chronic systolic CHF, paroxysmal ventricular tachycardia status post ablation, cardiomyopathy, biventricular ICD in place, hypertension, HLD, paroxysmal A. fib on Pradaxa hypothyroidism, CKD stage III who presents with acute onset of substernal chest pain beginning last evening. Patient woke up at 8 AM today with significant pain radiating to his back and up into the neck. He denied any shortness of breath, nausea or numbness and tingling into his hands or fingers. Patient took all his morning medications and has been compliant with them. Once he arrived in the ER, Nitropaste was placed on the left arm and reports that his pain has been significantly alleviated. Currently rates it as a 2/10 compared to 5/10 when he arrived. Admission Exam (Per Admitting) Constitutional WD/WN, vitals as above (This represents the exam on the day of discharge.) well developed Eyes PERRL, conjunctivae normal, anicteric sclerae ENMT external ear and nose normal, oropharynx normal Neck trachea midline, no thyromegaly normal visual inspection Respiratory normal respiratory effort, lungs clear to auscultation Cardiovascular Rate/Rhythm: regular rate Gastrointestinal (Abdomen) normal bowel sounds, soft, nontender, no hepatosplenomegaly Skin no rashes, warm and dry Psychiatric A+Ox3, euthymic affect Orientation: alert and oriented to place Discharge Data Consultations 08/02/19 14:35 ED Decision to Admit Stat 08/02/19 16:16 Consult Cardiology Routine Consult Case Management - Discharge Planning Routine Hospital Course (1) Chest pain: Patient was admitted to telemetry. He was seen in consultation by cardiology.He had a mild troponin elevation consistent with his prior levels and this was not thought to be consistent with acute coronary syndrome. On the morning after admission, the patient was without any continued chest discomfort. He states that the chest discomfort that he had in the area on his device had completely resolved and has not returned overnight or this morning. He has a history of paroxysmal atrial fibrillation, although no noted recent episodes of atrial fibrillation. History of chronic systolic heart failure though appears euvolemic upon examination. He denies any symptoms to suggest pulmonary edema or volume overload. His troponin elevation is most likely chronic and not member service representative of a non-ST elevated myocardial infarction. The patient had a resting echocardiogram on the day of discharge and results are pending. The patient is anxious for discharge and will be discharged this morning with follow-up with his primary care physician and cardiology if needed. Discharge Instructions Discharged this morning with primary care follow-up (within 1 to 2 weeks) and cardiology follow-up if needed. Reviewed signs of acute coronary syndrome and when to return to the emergency department.
[2019-08-03 09:41] VITALS: PULSE 68
== END 2019-08-03 10:26 | disposition home or self-care (01) ==
LOC: ED 12:34 → INTOOBSV 14:47 → 2S 14:47 → SUATTDRO 14:47